=== PATIENT | male | born 1960 | race Caucasian/White ===

== ENCOUNTER 2019-12-19 17:03 | Emergency (ER) | payer OTHER, SELFPAY ==
[2019-12-19 17:20] VITALS: BP 147/96; PULSE 67; RESP 18; TEMP 36.4; O2SAT 98
[2019-12-19 18:07] LABS: Add Manual Diff / Slide Review NO; Basophils Absolute Auto 0 /uL (0-100); Basophils Percent Auto 0.6 % (0-2); Eosinophils Absolute Auto 0 /uL (0-450); Eosinophils Percent Auto 0.5 % (2-4); Hemoglobin 15.5 g/dL (13.5-17.5); Lymphocytes Absolute Auto 1600 /uL (1100-4500); Lymphocytes Percent Auto 30.2 % (25-40); Mean Corpuscular HGB Conc 34.5 % (30-36); Mean Corpuscular Hemoglobin 32.6 PG (26-34); Mean Corpuscular Volume 94.7 fL (80-100); Monocytes Absolute Auto 600 /uL (0-900); Monocytes Percent Auto 11.6 % (3-14); Neutrophils Absolute Auto 3000 /uL (1500-7000); Neutrophils Percent Auto 57.1 % (50-75); Platelet Count 196 X10^3/uL (150-400); Red Blood Cell Count 4.75 X10^6/uL (4.5-5.9); Red Cell Distribution Width 12.4 % (11.6-14.8); White Blood Cell Count 5.3 X10^3/uL (4.5-11.0)
[2019-12-19 18:11] LABS: INR 1.1 (0.9-1.3); Prothrombin Time 12.5 SECONDS (10.1-12.7)
[2019-12-19 18:14] LABS: PTT Partial Thromboplastin Tim 35 SECONDS (26.4-36.2)
[2019-12-19 18:17] LABS: Alanine Aminotransferase 25 IU/L (<50); Albumin 4.1 g/dL (3.5-5.0); Albumin Globulin Ratio 1.5 (1.0-2.8); Alkaline Phosphatase 66 U/L (38-126); Aspartate Aminotransferase 25 IU/L (17-59); BUN Creatinine Ratio 19.2 (6-22); Bilirubin Total 0.7 mg/dL (0.2-1.3); Blood Urea Nitrogen 23 mg/dL (9-20); Calcium 9.1 mg/dL (8.4-10.2); Carbon Dioxide 29 mmol/L (22-32); Chloride 106 mmol/L (98-107); Estimated Glomerular Filt Rate > 60.0 mL/min (>60); Globulin 2.8 g/dL (1.7-4.1); Glucose 120 mg/dL (70-100); HEMOLYSIS < 15 (0-50); Lipase 48 U/L (23-300); Potassium 4.7 mmol/L (3.4-5.1); Sodium 139 mmol/L (137-145); Total Protein 6.9 g/dL (6.3-8.2)
--- NOTE | 2019-12-19 18:28 | ED_ITS ---
HPI - Abdominal Pain General Chief Complaint: Abdominal Pain Stated Complaint: left side abdominal pain since last Sunday Time Seen by Provider: 12/19/19 17:17 Source: patient Mode of arrival: Ambulatory Limitations: no limitations History of Present Illness HPI narrative: 59M former smoker with morbid obesity, HTN, and hypothyroid presents with the chief complaint of some L flank pain over the past week or so. He states it is worse when he moves and improves with rest. He denies any injury or history of the same. He denies any runny nose, sore throat or cough. Patient denies any fever, chills nor nausea or vomiting. He does state that he has had constipation for the past week or so. He denies any dysuria, frequency, urgency or hematuria. MD complaint: flank pain Onset (ago): day(s) Pain Consistency: constant Location: L flank Severity: moderate Quality: cramping and aching Radiation: LLQ Relieving factors: rest Exacerbating factors: movement Related Data Home Medications Medication Instructions Recorded Confirmed apixaban [Eliquis] 5 mg PO BID 12/19/19 12/19/19 atorvastatin 40 mg PO DAILY 12/19/19 12/19/19 carvedilol 6.25 mg PO BID 12/19/19 12/19/19 cholecalciferol (vitamin D3) 5,000 unit PO DAILY 12/19/19 12/19/19 [Vitamin D3] esomeprazole magnesium 40 mg PO BID 12/19/19 12/19/19 fluticasone propionate 1 spray INTRANASAL DIRECTED 12/19/19 12/19/19 hydroxyzine HCl 25 mg PO DAILY 12/19/19 12/19/19 levothyroxine [Synthroid] 175 mcg PO DAILY 12/19/19 12/19/19 loratadine 10 mg PO DAILY 12/19/19 12/19/19 losartan 50 mg PO DAILY 12/19/19 12/19/19 meloxicam 15 mg PO DAILY 12/19/19 12/19/19 olopatadine [Patanol] 1 drp OPHTHALMIC (EYE) DIRECTED 12/19/19 12/19/19 rizatriptan 10 mg PO PRN PRN 12/19/19 12/19/19 venlafaxine 75 mg PO DAILY 12/19/19 venlafaxine 300 mg PO DAILYCC 12/19/19 12/19/19 zolpidem 5 mg PO BEDTIME 12/19/19 12/19/19 Previous Rx's Medication Instructions Recorded hydrocodone-acetaminophen 1 tab PO Q4-6H PRN #10 tab 12/19/19 ondansetron 4 mg PO TID-QID PRN #10 tab 12/19/19 Allergies Allergy/AdvReac Type Severity Reaction Status Date / Time No Known Drug Allergies Allergy Verified 12/19/19 18:13 Review of Systems Constitutional Constitutional: Denies chills, Denies fatigue, Denies fever(s), Denies frequent falls, Denies lethargy and Denies weakness Eyes Eyes: Denies change in vision, Denies eye discharge, Denies irritation and Denies loss of vision ENT Ears, Nose, Mouth, and Throat: Denies change in voice, Denies dizziness, Denies neck pain, Denies sore throat and Denies throat swelling Cardiovascular Cardiovascular: Denies chest pain, Denies irregular heart rhythm, Denies lightheadedness, Denies palpitations, Denies dyspnea, Denies dyspnea on exertion and Denies orthopnea Respiratory Respiratory: Denies cough, Denies dyspnea, Denies dyspnea on exertion and Denies wheezing Gastrointestinal Gastrointestinal: Denies abdominal pain, Denies change in bowel habits, Denies diarrhea, Denies nausea and Denies vomiting Genitourinary Genitourinary: Denies hematuria, Reports flank pain, Denies urinary incontinence and Denies urinary urgency Musculoskeletal Musculoskeletal: Denies back pain, Denies muscle weakness, Denies neck pain, Denies numbness and Denies tingling Integumentary/Breasts Skin/Breast: Denies pruritus, Denies erythema, Denies rash and Denies wounds Neurologic Neurologic: Denies behavioral changes, Denies confusion, Denies dizziness, Denies frequent falls, Denies loss of vision, Denies numbness, Denies tingling and Denies weakness Psychiatric Psychiatric: Denies anxiety, Denies behavioral changes, Denies confusion, Denies depression, Denies homicidal ideation and Denies suicidal ideation Endocrine Endocrine: Denies fatigue, Denies flushing and Denies palpitations Hematologic/Lymphatic Hematologic/Lymphatic: Denies easy bruising Allergic/Immunologic Allergic/Immunologic: Denies urticaria, Denies throat swelling and Denies wheezing Patient History Medical History Pulmonary emboli (Acute ~08/05/19) Stroke (Acute ~08/05/18) Social History Smoking Status: Former smoker Smoking Status: Former smoker tobacco type: cigarettes alcohol intake frequency: a few times a week Substance Use Type: does not use Exam Narrative Exam Narrative: GENERAL: [59] year old patient appears stated age. Well- nourished, well-developed patient, in mild distress. HEAD: Atraumatic. Normocephalic. EYES: Pupils equal round and reactive. Extraocular motions intact. No scleral icterus. No injection or drainage. ENT: Nose without bleeding, purulent drainage. Throat without erythema, tonsillar hypertrophy or exudate. Airway patent. NECK: Trachea midline. Non tender CARDIOVASCULAR: Regular rate and rhythm without murmurs, gallops, or rubs. RESPIRATORY: Clear to auscultation. Breath sounds equal bilaterally. No wheezes, rales, or rhonchi. GASTROINTESTINAL: Abdomen soft, left sided abdominal pain, nondistended. EXTREMITIES: No edema or joint tenderness. BACK: Mild left flank pain NEURO: AOx3. SKIN: No rash or erythema of visible areas Initial Vital Signs Initial Vital Signs: Vital Signs Temperature 97.5 F L 12/19/19 17:20 Pulse Rate 67 12/19/19 17:20 Respiratory Rate 18 12/19/19 17:20 Blood Pressure 147/96 H 12/19/19 17:20 Pulse Oximetry 98 12/19/19 17:20 Course Orders Ordered: ED Orders 12/19/19 17:55 Complete Blood Count AUTO DIFF Stat Comprehensive Metabolic Panel Stat Lipase Stat Partial Thromboplastin Time Stat Prothrombin Time INR Stat 12/19/19 18:37 CT abdomen pelvis w con Stat Discontinued Medications Hydrocodone Bitart/Acetaminophen (Vicodin 5/325 Prepack) 1 bottle MISC SEEINSTR ONE Stop: 12/19/19 20:12 Last Admin: 12/19/19 20:25 Dose: 1 bottle Documented by: BEVERLEY Hydromorphone HCl (Dilaudid) 0.5 mg IV NOW ONE Stop: 12/19/19 19:58 Last Admin: 12/19/19 20:13 Dose: 0.5 mg Documented by: BEVERLEY Sodium Chloride (Normal Saline 0.9%) 1,000 mls @ 1,000 mls/hr IV BOLUS ONE Stop: 12/19/19 19:36 Last Infusion: 12/19/19 20:26 Dose: 0 mls/hr Documented by: Admin: 12/19/19 18:42 Dose: 1,000 mls/hr Documented by: MAURICIO Ketorolac Tromethamine (Toradol) 15 mg IV NOW ONE Stop: 12/19/19 18:38 Last Admin: 12/19/19 18:42 Dose: 15 mg Documented by: MAURICIO Ondansetron HCl (Zofran Odt Prepack) 1 bottle MISC SEEINSTR ONE Stop: 12/19/19 20:12 Last Admin: 12/19/19 20:25 Dose: 1 bottle Documented by: BEVERLEY Vital Signs Vital signs: Vital Signs - 8 hr 12/19/19 17:20 12/19/19 19:33 12/19/19 20:10 Temperature 97.5 F L Pulse Rate 67 63 Respiratory Rate 18 Blood Pressure 147/96 H Blood Pressure [Left Arm] 142/86 H Pulse Oximetry 98 100 100 MDM - Abdominal Pain Lab Data Result diagrams: 12/19/19 17:55 12/19/19 17:55 Labs: Lab Results 12/19/19 12/19/19 12/19/19 Range/Units 17:55 17:55 17:55 WBC 5.3 (4.5-11.0) X10^3/uL RBC 4.75 (4.5-5.9) X10^6/uL Hgb 15.5 (13.5-17.5) g/dL Hct 45.0 (41-53) % MCV 94.7 (80-100) fL MCH 32.6 (26-34) PG MCHC 34.5 (30-36) % RDW 12.4 (11.6-14.8) % Plt Count 196 (150-400) X10^3/uL Neut % (Auto) 57.1 (50-75) % Lymph % (Auto) 30.2 (25-40) % Tift % (Auto) 11.6 (3-14) % Eos % (Auto) 0.5 L (2-4) % Baso % (Auto) 0.6 (0-2) % Neut # (Auto) 3000 (7584-4741) /uL Lymph # (Auto) 1600 (6888-1445) /uL Tift # (Auto) 600 (0-900) /uL Eos # (Auto) 0 (0-450) /uL Baso # (Auto) 0 (0-100) /uL PT 12.5 (10.1-12.7) SECONDS INR 1.1 (0.9-1.3) APTT 35 (26.4-36.2) SECONDS Sodium 139 (137-145) mmol/L Potassium 4.7 (3.4-5.1) mmol/L Chloride 106 (98-107) mmol/L Carbon Dioxide 29 (22-32) mmol/L BUN 23 H (9-20) mg/dL Creatinine 1.20 (0.66-1.25) mg/dL Estimated GFR > 60.0 (>60) mL/min BUN/Creatinine Ratio 19.2 (6-22) Glucose 120 H (70-100) mg/dL Calcium 9.1 (8.4-10.2) mg/dL Total Bilirubin 0.7 (0.2-1.3) mg/dL AST 25 (17-59) IU/L ALT 25 (<50) IU/L Alkaline Phosphatase 66 (38-126) U/L Total Protein 6.9 (6.3-8.2) g/dL Albumin 4.1 (3.5-5.0) g/dL Globulin 2.8 (1.7-4.1) g/dL Albumin/Globulin Ratio 1.5 (1.0-2.8) Lipase 48 (23-300) U/L Point of care testing: Urine Dip Bedside Urine Glucose Negative Bedside Urine Bilirubin - Negative Bedside Urine Ketone - Negative Urine Specific Percival 1.015 Bedside Urine Occult Blood - Negative Bedside Urine pH 6.0 Bedside Urine Protein - Negative Bedside Urine Urobilinogen - Negative Bedside Urine Nitrite - Negative Bedside Urine Leukocytes - Negative Esterase Imaging Data CT scan - abdomen/pelvis: Radiologist's Impression: [address] [address] [address] Scan Report Signed Patient: Juwan Fuller#: [id number] : 2Acct:[id number] Age/Sex: 59 / MDate of Service: 12/19/19 Loc: ED Accession Number: [id number] Procedure: CT abdomen pelvis w con Ordering Provider: Trevon Finch D.O. PROCEDURE: CT ABDOMEN PELVIS W CON INDICATIONS: severe L flank and abdomen pain TECHNIQUE: After the administration of intravenous contrast, 5 mm thick sections acquired from the diaphragm to the symphysis. 5 mm coronal and sagittal reformats were acquired. For radiation dose reduction, the following was used: automated exposure control, adjustment of mA and/or kV according to patient size. COMPARISON: None. FINDINGS: Image quality: Excellent. ABDOMEN: Lung bases: Lung bases are clear. Heart size is normal. Solid organs: There is a 1.8 x 6.8 x 2.8 cm focus of ill-defined enhancement in the posterior right lobe of liver. There is a small 1.0 cm hypoattenuating lesion situated centrally within the area of enhancement. Gallbladder is normal. Biliary system is non dilated. Pancreas enhances normally. Spleen is normal in size and enhancement. No adrenal nodules. Kidneys demonstrate normal size and enhancement, without hydronephrosis. Small bilateral renal cysts. Peritoneum and bowel: Small hiatal hernia. Bowel loops demonstrate normal wall thickness and caliber. Few scattered diverticuli noted in the colon without evidence of diverticulitis. No free fluid or air. The appendix is surgically absent. Nodes and vessels: No retroperitoneal or mesenteric adenopathy by size criteria. Aorta and inferior vena cava are normal in size. Miscellaneous: No ventral hernias. PELVIS: Genitourinary: Bladder wall thickness is normal. Miscellaneous: No inguinal hernias or adenopathy. Bones: No suspicious bony lesions. No vertebral body compression fractures. IMPRESSION: 1. Focus of ill-defined postcontrast enhancement with a central cyst or necrosis involving the right lobe of the liver. Finding may represent transient hepatic atypical hemangioma, however other etiologies including a malignancy and infection cannot be differentiated. Recommend correlation with clinical and laboratory data. Recommend CT scan hepatic protocol utilizing multiphase technique for definitive characterization. 2. Small hiatal hernia. 3. Status post appendectomy. 4. Clinical diverticulosis without evidence of diverticulitis. Findings and recommendations discussed with Dr. Finch on 12/19/2019 at 1925 hrs. Dictated by: Rut Izaguirre MD, PhD on 12/19/2019 at 19:17 Approved by: Rut Izaguirre MD, PhD on 12/19/2019 at 19:27 [facility] Narrative Medical decision making narrative: Multiple etiologies for patient's symptoms co nsidered including: [Kidney stone versus pyelonephritis versus bowel obstruction versus other. Patient states he has had a cyst in his liver for many years and that he has no right-sided pain] Patient's symptoms improved or duration of stay with above-stated therapies. Findings and discharge diagnosis discussed with patient/family followed by verbalization of understanding Return precautions discussed with patient/family whom verbalize understanding. Discharge Plan Departure Patient Disposition: Home Clinical Impression: Abdominal pain Qualifiers: Abdominal location: left upper quadrant Qualified Code(s): R10.12 - Left upper quadrant pain Discharge Date/Time: 12/19/19 20:43 Instructions: DI for Abdominal Pain-Adult Activity Restrictions/Additional Instructions: *You have been diagnosed with [acute left-sided abdominal pain, no significant findings on CT scan such as bowel infection, obstruction or kidney stone.] *What to do: *Take medications as directed *Follow up with your primary care provider in 2-3 days, call for an appointment. Let them know you were seen in the Emergency Department and that we ask that you be seen in follow up. Your CT did find what is likely an incidental finding of an atypical appearing spot your liver which radiology recommended is evaluated by a specific type of CT scan as an outpatient which your primary care provider can healthy with *Return to ER if you should have any new, worsening or concerning symptoms, such as [increasing pain, fever, shaking chills, persistent vomiting or other bothersome symptoms] Prescriptions: New hydrocodone-acetaminophen 5-325 mg tablet 1 tab PO Q4-6H PRN (Reason: pain) Qty: 10 RF: 0 ondansetron 4 mg tablet,disintegrating 4 mg PO TID-QID PRN (Reason: nausea and vomiting) Qty: 10 RF: 0 No Action atorvastatin 40 mg tablet 40 mg PO DAILY RF: 0 carvedilol 6.25 mg tablet 6.25 mg PO BID RF: 0 esomeprazole magnesium 40 mg capsule,delayed release(DR/EC) 40 mg PO BID RF: 0 fluticasone propionate 50 mcg/actuation spray,suspension 1 spray INTRANASAL DIRECTED RF: 0 Eliquis 5 mg tablet 5 mg PO BID RF: 0 losartan 50 mg tablet 50 mg PO DAILY RF: 0 levothyroxine [Synthroid] 175 mcg tablet 175 mcg PO DAILY RF: 0 venlafaxine 75 mg capsule,extended release 24hr 75 mg PO DAILY RF: 0 meloxicam 15 mg tablet 15 mg PO DAILY RF: 0 venlafaxine 150 mg capsule,extended release 24hr 300 mg PO DAILYCC RF: 0 rizatriptan 10 mg tablet,disintegrating 10 mg PO PRN PRN (Reason: Migraine Headache) RF: 0 olopatadine [Patanol] 0.1 % drops 1 drp ophthalmic (eye) DIRECTED RF: 0 hydroxyzine HCl 25 mg tablet 25 mg PO DAILY RF: 0 zolpidem 5 mg tablet 5 mg PO BEDTIME RF: 0 loratadine 10 mg tablet 10 mg PO DAILY RF: 0 cholecalciferol (vitamin D3) [Vitamin D3] 125 mcg (5,000 unit) Tablet 5,000 unit PO DAILY RF: 0 Referrals: [facility] [Outside]
--- NOTE | 2019-12-19 18:37 | DI.CT.S_ITS ---
PROCEDURE: CT ABDOMEN PELVIS W CON INDICATIONS: severe L flank and abdomen pain TECHNIQUE: After the administration of intravenous contrast, 5 mm thick sections acquired from the diaphragm to the symphysis. 5 mm coronal and sagittal reformats were acquired. For radiation dose reduction, the following was used: automated exposure control, adjustment of mA and/or kV according to patient size. COMPARISON: None. FINDINGS: Image quality: Excellent. ABDOMEN: Lung bases: Lung bases are clear. Heart size is normal. Solid organs: There is a 1.8 x 6.8 x 2.8 cm focus of ill-defined enhancement in the posterior right lobe of liver. There is a small 1.0 cm hypoattenuating lesion situated centrally within the area of enhancement. Gallbladder is normal. Biliary system is non dilated. Pancreas enhances normally. Spleen is normal in size and enhancement. No adrenal nodules. Kidneys demonstrate normal size and enhancement, without hydronephrosis. Small bilateral renal cysts. Peritoneum and bowel: Small hiatal hernia. Bowel loops demonstrate normal wall thickness and caliber. Few scattered diverticuli noted in the colon without evidence of diverticulitis. No free fluid or air. The appendix is surgically absent. Nodes and vessels: No retroperitoneal or mesenteric adenopathy by size criteria. Aorta and inferior vena cava are normal in size. Miscellaneous: No ventral hernias. PELVIS: Genitourinary: Bladder wall thickness is normal. Miscellaneous: No inguinal hernias or adenopathy. Bones: No suspicious bony lesions. No vertebral body compression fractures. IMPRESSION: 1. Focus of ill-defined postcontrast enhancement with a central cyst or necrosis involving the right lobe of the liver. Finding may represent transient hepatic atypical hemangioma, however other etiologies including a malignancy and infection cannot be differentiated. Recommend correlation with clinical and laboratory data. Recommend CT scan hepatic protocol utilizing multiphase technique for definitive characterization. 2. Small hiatal hernia. 3. Status post appendectomy. 4. Clinical diverticulosis without evidence of diverticulitis. Findings and recommendations discussed with Dr. Finch on 12/19/2019 at 1925 hrs. Dictated by: Rut Izaguirre MD, PhD on 12/19/2019 at 19:17 Approved by: Rut Izaguirre MD, PhD on 12/19/2019 at 19:27
[2019-12-19] MEDS: KETOROLAC 60 MG/2 ML VIAL 15 MG IV (18:42)
[2019-12-19] MEDS: SODIUM CHLORIDE 0.9% 1,000 ML 1000 ML IV (18:42)
[2019-12-19 19:33] VITALS: BP 142/86; PULSE 63; O2SAT 100
[2019-12-19 20:10] VITALS: O2SAT 100
[2019-12-19] MEDS: HYDROMORPHONE 0.5 MG INJ IV (20:13)
[2019-12-19] MEDS: ONDANSETRON 4 MG ODT PREPACK 1 BOTTLE MISC (20:25)
[2019-12-19] MEDS: HYDROCODONE/ACET 5/325 PREPACK 1 BOTTLE MISC (20:25)
== END 2019-12-19 20:43 | disposition home or self-care (01) ==
PROVIDERS: Emergency Provider Emergency Medicine
DX: R10.12 Left upper quadrant pain (principal)
CPT/HCPCS: 36415; 74177; 80053; 81003; 83690; 85025; 85610; 85730; 96361; 96374; 96375; 99284; 99285; J1170; J1885

== ENCOUNTER 2020-01-15 14:15 | Emergency (ER) | payer OTHER, SELFPAY ==
[2020-01-15 14:16] VITALS: BP 156/96; PULSE 63; RESP 18; TEMP 36.9; O2SAT 98
--- NOTE | 2020-01-15 14:20 | DI.RAD.S_ITS ---
PROCEDURE: XR ANKLE LT MIN 3V INDICATIONS: fall TECHNIQUE: 3 views of the ankle were acquired. COMPARISON: None. FINDINGS: Bones: No fractures or dislocations. Ankle mortise is normally aligned. No suspicious bony lesions. Soft tissues: No tibiotalar joint effusion. Achilles tendon appears normal. IMPRESSION: No gross acute left foot fracture or dislocation. Dictated by: João Darby M.D. on 01/15/2020 at 15:37 Approved by: João Darby M.D. on 01/15/2020 at 15:38
--- NOTE | 2020-01-15 14:20 | DI.RAD.S_ITS ---
PROCEDURE: XR FOOT LT MIN 3V INDICATIONS: fall TECHNIQUE: 3 views of the foot were acquired. COMPARISON: None. FINDINGS: Bones: No fractures or dislocations. No suspicious bony lesions. Soft tissues: No tibiotalar joint effusion. Achilles tendon appears normal. IMPRESSION: No acute ankle fracture or dislocation. Dictated by: João Darby M.D. on 01/15/2020 at 15:37 Approved by: João Darby M.D. on 01/15/2020 at 15:37
[2020-01-15 14:30] VITALS: PULSE 72
--- NOTE | 2020-01-15 16:30 | ED.LOWEXIN ---
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 He states he rolled inwards yesterday felt a pop and a crack. He has tried Tylenol he has been able to walk it since the injury. He states he has a previous injury of strain sprains and fractures. He does complain of bruising on the outside of his left ankle. Related Data Home Medications Medication Instructions Recorded Confirmed apixaban [Eliquis] 5 mg PO BID 12/19/19 01/15/20 atorvastatin 40 mg PO DAILY 12/19/19 01/15/20 carvedilol 6.25 mg PO BID 12/19/19 01/15/20 cholecalciferol (vitamin D3) 5,000 unit PO DAILY 12/19/19 01/15/20 [Vitamin D3] esomeprazole magnesium 40 mg PO BID 12/19/19 01/15/20 fluticasone propionate 1 spray INTRANASAL DIRECTED 12/19/19 01/15/20 hydroxyzine HCl 25 mg PO DAILY 12/19/19 01/15/20 levothyroxine [Synthroid] 175 mcg PO DAILY 12/19/19 01/15/20 loratadine 10 mg PO DAILY 12/19/19 01/15/20 losartan 50 mg PO DAILY 12/19/19 01/15/20 meloxicam 15 mg PO DAILY 12/19/19 01/15/20 olopatadine [Patanol] 1 drp OPHTHALMIC (EYE) DIRECTED 12/19/19 01/15/20 rizatriptan 10 mg PO PRN PRN 12/19/19 01/15/20 venlafaxine 75 mg PO DAILY 12/19/19 01/15/20 venlafaxine 300 mg PO DAILYCC 12/19/19 01/15/20 zolpidem 5 mg PO BEDTIME 12/19/19 01/15/20 Previous Rx's Medication Instructions Recorded hydrocodone-acetaminophen 1 tab PO Q4-6H PRN #10 tab 12/19/19 ondansetron 4 mg PO TID-QID PRN #10 tab 12/19/19 Allergies Allergy/AdvReac Type Severity Reaction Status Date / Time No Known Drug Allergies Allergy Verified 12/19/19 18:13 Review of Systems <ERNESTINA Bermudez - Last Filed: 01/15/20 16:45> Review of Systems Narrative: GENERAL: Denies chills, fatigue, malaise, fever, sweats. HEENT: Denies sinus pain, ear pain, sore throat, difficulty swallowing, dizziness. RESPIRATORY: Denies dyspnea, cough, wheezing, hemoptysis, sputum. CARDIOVASCULAR: Denies chest pain, palpitations, orthopnea, edema, GASTROINTESTINAL: Denies nausea, vomiting, abdominal pain, diarrhea, constipation, melena. : Denies dysuria, frequency, incontinence, hematuria, urinary retention. MUSCULOSKELETAL: denies weakness, joint pain, or bony pain SKIN: Denies rash, skin lesions, or other NEUROLOGIC: Denies weakness, headache, numbness, change in speech, confusion, seizures, incoordination. PSYCHIATRIC: No concerning psychosocial issues. 12 point review of systems is negative except for those stated above Patient History <ERNESTINA Bermudez - Last Filed: 01/15/20 16:45> Medical History Pulmonary emboli (Acute ~08/05/19) Stroke (Acute ~08/05/18) Social History Smoking Status: Former smoker Smoking Status: Former smoker tobacco type: cigarettes alcohol intake frequency: a few times a week Substance Use Type: does not use Exam <ERNESTINA Bermudez - Last Filed: 01/15/20 16:45> Narrative Exam Narrative: GENERAL: This is a well-nourished, well-developed patient, no acute distress HEAD: Atraumatic. Normocephalic. No temporal or scalp tenderness. EYES: Pupils equal round and reactive. Extraocular motions intact. No scleral icterus. No injection or drainage. ENT: Nose without bleeding, purulent drainage or septal hematoma. Throat without erythema, tonsillar hypertrophy or exudate. Uvula midline. Airway patent. NECK: Trachea midline. No JVD or lymphadenopathy. Supple, nontender, no meningeal signs. CARDIOVASCULAR: Regular rate and rhythm RESPIRATORY: No cough. No increased respiratory effort. No accessory muscle use. EXTREMITIES: General pain to palpation lateral aspect of left ankle. No pain to palpation of left navicular. Positive pedal pulses left foot. Capillary refill less than 2 seconds all toes left foot. Able to flex and extend pronate supinate left foot. BACK: Nontender without deformity or crepitance. No flank tenderness. NEURO: AOx3. SKIN: Diffuse ecchymosis noted on lateral aspect of left ankle. Diffuse ecchymosis noted over left forefoot. No abrasion laceration. Initial Vital Signs Initial Vital Signs: Vital Signs Temperature 98.4 F 01/15/20 14:16 Pulse Rate 63 01/15/20 14:16 Respiratory Rate 18 01/15/20 14:16 Blood Pressure 156/96 H 01/15/20 14:16 Pulse Oximetry 98 01/15/20 14:16 <Man Singh MD - Last Filed: 01/16/20 07:56> Initial Vital Signs Initial Vital Signs: Vital Signs Temperature 98.4 F 01/15/20 14:16 Pulse Rate 63 01/15/20 14:16 Respiratory Rate 18 01/15/20 14:16 Blood Pressure 156/96 H 01/15/20 14:16 Pulse Oximetry 98 01/15/20 14:16 Course <KRYSTA Bermudez-BC - Last Filed: 01/15/20 16:45> Orders Ordered: ED Orders 01/15/20 14:20 XR ankle LT min 3V Stat XR foot LT min 3V Stat Vital Signs Vital signs: Vital Signs - 8 hr 01/15/20 14:16 Temperature 98.4 F Pulse Rate 63 Respiratory Rate 18 Blood Pressure 156/96 H Pulse Oximetry 98 <Man Singh MD - Last Filed: 01/16/20 07:56> Orders Ordered: ED Orders 01/15/20 14:20 XR ankle LT min 3V Stat XR foot LT min 3V Stat Vital Signs Vital signs: Vital Signs - 8 hr 01/15/20 14:16 Temperature 98.4 F Pulse Rate 63 Respiratory Rate 18 Blood Pressure 156/96 H Pulse Oximetry 98 MDM - Extremity Injury (Lower) <Karen Marcos, [employer] - Last Filed: 01/15/20 16:45> Imaging Data Extremity x-ray #1: Radiologist's Impression: [address] [place] [id number] XRay Report Signed Patient: Nadeem Fuller JR [facility]#: [id number] : [id number] Age/Sex: 59 / MDate of Service: 01/15/20 Loc: ED Accession Number: [id number] Procedure: XR foot LT min 3V Ordering Provider: Man Singh MD PROCEDURE: XR FOOT LT MIN 3V INDICATIONS: fall TECHNIQUE: 3 views of the foot were acquired. COMPARISON: None. FINDINGS: Bones: No fractures or dislocations. No suspicious bony lesions. Soft tissues: No tibiotalar joint effusion. Achilles tendon appears normal. IMPRESSION: No acute ankle fracture or dislocation. Dictated by: João Darby M.D. on 01/15/2020 at 15:37 Approved by: João Darby M.D. on 01/15/2020 at 15:37 Extremity x-ray #2: Radiologist's Impression: [address] [place] [id number] XRay Report Signed Patient: Nadeem Fuller JR [facility]#: [id number] : [id number] Age/Sex: 59 / MDate of Service: 01/15/20 Loc: ED Accession Number: [id number] Procedure: XR ankle LT min 3V Ordering Provider: Man Singh MD PROCEDURE: XR ANKLE LT MIN 3V INDICATIONS: fall TECHNIQUE: 3 views of the ankle were acquired. COMPARISON: None. FINDINGS: Bones: No fractures or dislocations. Ankle mortise is normally aligned. No suspicious bony lesions. Soft tissues: No tibiotalar joint effusion. Achilles tendon appears normal. IMPRESSION: No gross acute left foot fracture or dislocation. Dictated by: João Darby M.D. on 01/15/2020 at 15:37 Approved by: João Darby M.D. on 01/15/2020 at 15:38 [facility] Narrative Medical decision making narrative: The patient is a 59-year-old male who presents with a chief complaint of left-sided ankle and foot pain. X-rays are negative for any acute fracture. Discussed the possibility of an occult fracture soft tissue injury. Patient is able to ambulate does not want a brace or anything like that. I encouraged PCP follow-up the next few days. Discussed coming back to the emergency department for any acute concerns. Patient has no questions or concerns upon discharge and states understanding of return precautions as well as follow-up care. Discharge Plan Departure Patient Disposition: Home Clinical Impression: Acute left ankle pain, Acute pain of left foot Discharge Date/Time: 01/15/20 16:50 Instructions: How To Perform RICE (Rest, Ice, Compress, Elevate), DI for Ankle Pain, DI for Foot Pain Activity Restrictions/Additional Instructions: Thank you for trusting us with your care today As I discussed, your x-ray shows no acute fracture. This does not rule out a soft tissue injury such as a ligament or tendon injury. It is important that you follow up with primary care provider, especially if worsening or no improvement. There can be fractures that did not show up on initial x-ray. Please use rest ice compression elevation please use [id number] medications as needed and able. Please follow-up with primary care provider next few days. Please come back to the emergency department for any acute concerns. Prescriptions: No Action atorvastatin 40 mg tablet 40 mg PO DAILY RF: 0 carvedilol 6.25 mg tablet 6.25 mg PO BID RF: 0 esomeprazole magnesium 40 mg capsule,delayed release(DR/EC) 40 mg PO BID RF: 0 fluticasone propionate 50 mcg/actuation spray,suspension 1 spray INTRANASAL DIRECTED RF: 0 Eliquis 5 mg tablet 5 mg PO BID RF: 0 losartan 50 mg tablet 50 mg PO DAILY RF: 0 levothyroxine [Synthroid] 175 mcg tablet 175 mcg PO DAILY RF: 0 venlafaxine 75 mg capsule,extended release 24hr 75 mg PO DAILY RF: 0 meloxicam 15 mg tablet 15 mg PO DAILY RF: 0 venlafaxine 150 mg capsule,extended release 24hr 300 mg PO DAILYCC RF: 0 rizatriptan 10 mg tablet,disintegrating 10 mg PO PRN PRN (Reason: Migraine Headache) RF: 0 olopatadine [Patanol] 0.1 % drops 1 drp ophthalmic (eye) DIRECTED RF: 0 hydroxyzine HCl 25 mg tablet 25 mg PO DAILY RF: 0 zolpidem 5 mg tablet 5 mg PO BEDTIME RF: 0 loratadine 10 mg tablet 10 mg PO DAILY RF: 0 cholecalciferol (vitamin D3) [Vitamin D3] 125 mcg (5,000 unit) Tablet 5,000 unit PO DAILY RF: 0 hydrocodone-acetaminophen 5-325 mg tablet 1 tab PO Q4-6H PRN (Reason: pain) Qty: 10 RF: 0 ondansetron 4 mg tablet,disintegrating 4 mg PO TID-QID PRN (Reason: nausea and vomiting) Qty: 10 RF: 0 Referrals: Latanya James DO [Non-Staff] -
== END 2020-01-15 16:50 | disposition home or self-care (01) ==
PROVIDERS: Emergency Provider Nurse Practitioner Family
DX: M25.572 Pain in left ankle and joints of left foot (principal); W19.XXXA Unspecified fall, initial encounter
CPT/HCPCS: 73610; 73630; 99283

== ENCOUNTER 2020-06-14 23:17 | Emergency (ER) | payer OTHER, SELFPAY ==
[2020-06-14 23:17] VITALS: BP 136/81; PULSE 82; RESP 16; TEMP 36.6; O2SAT 98; BMI 32.8
--- NOTE | 2020-06-14 23:47 | DI.CT.S_ITS ---
PROCEDURE: CT ABDOMEN PELVIS W CON INDICATIONS: PAIN TECHNIQUE: After the administration of intravenous contrast, 5 mm thick sections acquired from the diaphragm to the symphysis. 5 mm coronal and sagittal reformats were acquired. For radiation dose reduction, the following was used: automated exposure control, adjustment of mA and/or kV according to patient size. COMPARISON: [facility], CT, CT ABDOMEN PELVIS W CON, 12/19/2019, 19:00. FINDINGS: Image quality: Excellent. ABDOMEN: Lung bases: Lung bases are clear. Heart size is normal. There is a small hiatal hernia. Solid organs: Within the right hepatic lobe, a small oval hypodensity measuring up to 0.8 cm appears unchanged in size. This demonstrates internal fat density. A small region of associated vascular shunting is again noted. The gallbladder appears within normal limits without calcified gallstones. Biliary system is non-dilated. Pancreas enhances normally. No peripancreatic fat stranding or fluid collections. No pancreatic duct dilatation. The spleen is normal in size. No adrenal nodules. Kidneys demonstrate no hydronephrosis. Peritoneum and bowel: Bowel loops demonstrate normal wall thickness and caliber. There are postsurgical changes along the cecum likely from prior appendectomy. There is colonic diverticulosis without acute diverticulitis. No free fluid or air. Nodes and vessels: No retroperitoneal or mesenteric adenopathy by size criteria. There is mild hazy fat stranding in the mesentery associated with a few scattered subcentimeter mesenteric lymph nodes. Aorta and inferior vena cava are normal in size. Miscellaneous: No ventral hernias. PELVIS: Genitourinary: Bladder wall thickness is normal. Miscellaneous: No inguinal hernias or adenopathy. Bones: No suspicious bony lesions. No vertebral body compression fractures. IMPRESSION: 1. Mild hazy fat stranding in the mesentery with a few scattered subcentimeter mesenteric lymph nodes. 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 2. Small fat density lesion redemonstrated in the right hepatic lobe with adjacent vascular shunting. Findings are stable in size compared to the recent prior study and likely represent a benign process such as an angiomyolipoma or lipoma but a malignant process cannot be fully excluded. Recommend follow-up CT in 12 months to demonstrate stability if clinically indicated. Dictated by: Tomas Sandoval M.D. on 06/15/2020 at 9:31 Approved by: Tomas Sandoval M.D. on 06/15/2020 at 9:55
[2020-06-14 23:57] LABS: Add Manual Diff / Slide Review NO; Basophils Absolute Auto 0 /uL (0-100); Basophils Percent Auto 0.2 % (0-2); Eosinophils Absolute Auto 0 /uL (0-450); Eosinophils Percent Auto 0.5 % (2-4); Hematocrit 38.7 % (41-53); Hemoglobin 13.2 g/dL (13.5-17.5); Lymphocytes Absolute Auto 1700 /uL (1100-4500); Lymphocytes Percent Auto 23.4 % (25-40); Mean Corpuscular HGB Conc 34.2 % (30-36); Mean Corpuscular Hemoglobin 32.5 PG (26-34); Mean Corpuscular Volume 95.1 fL (80-100); Monocytes Absolute Auto 800 /uL (0-900); Monocytes Percent Auto 11.9 % (3-14); Neutrophils Absolute Auto 4500 /uL (1500-7000); Platelet Count 219 X10^3/uL (150-400); Red Blood Cell Count 4.07 X10^6/uL (4.5-5.9); Red Cell Distribution Width 13.3 % (11.6-14.8); White Blood Cell Count 7.1 X10^3/uL (4.5-11.0)
[2020-06-14] MEDS: HYDROMORPHONE 0.5 MG INJ IV (23:59)
[2020-06-15 00:22] LABS: INR 0.9 (0.9-1.3); Prothrombin Time 10.3 SECONDS (10.1-12.7)
[2020-06-15 00:25] LABS: Blood Urea Nitrogen 27 mg/dL (9-20); Calcium 8.3 mg/dL (8.4-10.2); Carbon Dioxide 21 mmol/L (22-32); Chloride 113 mmol/L (98-107); Estimated Glomerular Filt Rate > 60.0 mL/min (>60); Glucose 48 mg/dL (70-100); HEMOLYSIS 19 (0-50); Potassium 4.5 mmol/L (3.4-5.1); Sodium 140 mmol/L (137-145)
[2020-06-15] MEDS: HYDROCODONE/ACET 5/325 PREPACK 1 BOTTLE MISC (01:19)
[2020-06-15 01:24] VITALS: BP 137/80; PULSE 83; RESP 16; O2SAT 98
--- NOTE | 2020-06-15 04:38 | ED.BACK ---
HPI - Back Pain/Injury General Chief Complaint: Back Pain/Injury Stated Complaint: right leg lower back hip abdomen Time Seen by Provider: 06/14/20 23:23 Source: patient and family Mode of arrival: Ambulatory Limitations: no limitations History of Present Illness HPI Narrative: 60M former smoker with history of hypertension, hyperlipidemia, GERD, and on eliquis presents with the chief complaint of back pain and bruising to his abdomen after a traumatic injury yesterday. He was working with a log splitter on uneven ground when it tipped over on him and landed on his abdomen. He now has low back pain across his low back. He also complains of some purplish bruising across his left anterior abdomen, but denies any true, deep abdomen pain. He has full recall and denies any head or neck injury. He's had no trouble with control of bowel or bladder. He denies dysuria, frequency, or urgency. He denies dizziness, weakness, or lightheadedness. He is otherwise well and free of complaint. He is activated as a modified trauma given the high risk of internal bleeding. MD Complaint: back pain, back injury and fall Onset (ago): day(s) Duration: constant Similar Symptoms Previously: Yes Location: lumbar spine Severity: mild Quality: aching Relieving factors: immobilization Exacerbating factors: movement Associated symptoms: denies other symptoms Related Data Home Medications Medication Instructions Recorded Confirmed apixaban [Eliquis] 5 mg PO BID 12/19/19 01/15/20 atorvastatin 40 mg PO DAILY 12/19/19 01/15/20 carvedilol 6.25 mg PO BID 12/19/19 01/15/20 cholecalciferol (vitamin D3) 5,000 unit PO DAILY 12/19/19 01/15/20 [Vitamin D3] esomeprazole magnesium 40 mg PO BID 12/19/19 01/15/20 fluticasone propionate 1 spray INTRANASAL DIRECTED 12/19/19 01/15/20 hydroxyzine HCl 25 mg PO DAILY 12/19/19 01/15/20 levothyroxine [Synthroid] 175 mcg PO DAILY 12/19/19 01/15/20 loratadine 10 mg PO DAILY 12/19/19 01/15/20 losartan 50 mg PO DAILY 12/19/19 01/15/20 meloxicam 15 mg PO DAILY 12/19/19 01/15/20 olopatadine [Patanol] 1 drp OPHTHALMIC (EYE) DIRECTED 12/19/19 01/15/20 rizatriptan 10 mg PO PRN PRN 12/19/19 01/15/20 venlafaxine 75 mg PO DAILY 12/19/19 01/15/20 venlafaxine 300 mg PO DAILYCC 12/19/19 01/15/20 zolpidem 5 mg PO BEDTIME 12/19/19 01/15/20 Previous Rx's Medication Instructions Recorded hydrocodone-acetaminophen 1 tab PO Q4-6H PRN #10 tab 12/19/19 ondansetron 4 mg PO TID-QID PRN #10 tab 12/19/19 Allergies Allergy/AdvReac Type Severity Reaction Status Date / Time No Known Drug Allergies Allergy Verified 12/19/19 18:13 Review of Systems Constitutional Constitutional: Denies chills, Denies fatigue, Denies fever(s), Denies frequent falls, Denies lethargy and Denies weakness Eyes Eyes: Denies change in vision, Denies eye discharge, Denies irritation and Denies loss of vision ENT Ears, Nose, Mouth, and Throat: Denies change in voice, Denies dizziness, Denies neck pain, Denies sore throat and Denies throat swelling Cardiovascular Cardiovascular: Denies chest pain, Denies irregular heart rhythm, Denies lightheadedness, Denies palpitations, Denies dyspnea, Denies dyspnea on exertion and Denies orthopnea Respiratory Respiratory: Denies cough, Denies dyspnea, Denies dyspnea on exertion and Denies wheezing Gastrointestinal Gastrointestinal: Denies abdominal pain, Denies change in bowel habits, Denies diarrhea, Denies nausea and Denies vomiting Musculoskeletal Musculoskeletal: Reports back pain, Denies neck pain and Denies numbness Integumentary/Breasts Skin/Breast: Denies pruritus, Denies erythema, Denies rash and Denies wounds Neurologic Neurologic: Denies behavioral changes, Denies confusion, Denies dizziness, Denies frequent falls, Denies loss of vision, Denies numbness and Denies weakness Psychiatric Psychiatric: Denies anxiety, Denies behavioral changes, Denies confusion, Denies depression, Denies homicidal ideation and Denies suicidal ideation Endocrine Endocrine: Denies fatigue, Denies flushing and Denies palpitations Hematologic/Lymphatic Hematologic/Lymphatic: Denies easy bruising Allergic/Immunologic Allergic/Immunologic: Denies urticaria, Denies throat swelling and Denies wheezing Patient History Medical History Pulmonary emboli (Acute ~08/05/19) Stroke (Acute ~08/05/18) Social History Smoking Status: Former smoker Smoking Status: Former smoker tobacco type: cigarettes alcohol intake frequency: 3 or more drinks per day Substance Use Type: does not use Exam Narrative Exam Narrative: GENERAL: [60] year old patient appears stated age. Well-nourished, well-developed patient, in mild distress. GCS 15 HEAD: Atraumatic. Normocephalic. EYES: Pupils equal round and reactive. Extraocular motions intact. No scleral icterus. No injection or drainage. ENT: Nose without bleeding, purulent drainage. Throat without erythema, tonsillar hypertrophy or exudate. Airway patent. NECK: Trachea midline. Non tender CARDIOVASCULAR: Regular rate and rhythm without murmurs, gallops, or rubs. RESPIRATORY: Clear to auscultation. Breath sounds equal bilaterally. No wheezes, rales, or rhonchi. GASTROINTESTINAL: Mild reddish, purplish hematoma on left anterior abdomen. Tenderness over hematoma only. No pain on palpation elsewhere. Abdomen soft, non-tender, nondistended. EXTREMITIES: No edema or joint tenderness. BACK: tire fabric impregnating range tender but free of any obvious external abnormalities. Patient exam notes decreased range of motion and muscle spasm, but no CVA tenderness, or vertebral point tenderness. There are no symptoms of cauda equina such as saddle anesthesia, and decreased reflexes, decreased sensation or strength. NEURO: AOx3. SKIN: No rash or erythema of visible areas Initial Vital Signs Initial Vital Signs: Vital Signs Temperature 97.9 F 06/14/20 23:17 Pulse Rate 82 06/14/20 23:17 Respiratory Rate 16 06/14/20 23:17 Blood Pressure 136/81 06/14/20 23:17 Pulse Oximetry 98 06/14/20 23:17 Course Orders Ordered: ED Orders 06/14/20 23:47 CT abdomen pelvis w con Stat Basic Metabolic Panel Stat Complete Blood Count AUTO DIFF Stat Prothrombin Time INR Stat Discontinued Medications Hydrocodone Bitart/Acetaminophen (Vicodin 5/325 Prepack) 1 bottle MISC SEEINSTR ONE Stop: 06/15/20 01:13 Last Admin: 06/15/20 01:19 Dose: 1 bottle Documented by: ROSSANA Hydromorphone HCl (Dilaudid) 0.5 mg IV NOW ONE Stop: 06/14/20 23:47 Last Admin: 06/14/20 23:59 Dose: 0.5 mg Documented by: ROSSANA Vital Signs Vital signs: Vital Signs - 8 hr 06/14/20 23:17 06/15/20 01:24 Temperature 97.9 F Pulse Rate 82 83 Respiratory Rate 16 16 Blood Pressure 136/81 137/80 Pulse Oximetry 98 98 MDM - Back Pain/Injury Lab Data Result diagrams: 06/14/20 23:47 06/14/20 23:47 Labs: Lab Results 06/14/20 06/14/20 06/14/20 Range/Units 23:47 23:47 23:47 WBC 7.1 (4.5-11.0) X10^3/uL RBC 4.07 L (4.5-5.9) X10^6/uL Hgb 13.2 L (13.5-17.5) g/dL Hct 38.7 L (41-53) % MCV 95.1 (80-100) fL MCH 32.5 (26-34) PG MCHC 34.2 (30-36) % RDW 13.3 (11.6-14.8) % Plt Count 219 (150-400) X10^3/uL Neut % (Auto) 64.0 (50-75) % Lymph % (Auto) 23.4 L (25-40) % [place] % (Auto) 11.9 (3-14) % Eos % (Auto) 0.5 L (2-4) % Baso % (Auto) 0.2 (0-2) % Neut # (Auto) 4500 (8065-8660) /uL Lymph # (Auto) 1700 (0052-4247) /uL [place] # (Auto) 800 (0-900) /uL Eos # (Auto) 0 (0-450) /uL Baso # (Auto) 0 (0-100) /uL PT 10.3 (10.1-12.7) SECONDS INR 0.9 (0.9-1.3) Sodium 140 (137-145) mmol/L Potassium 4.5 (3.4-5.1) mmol/L Chloride 113 H (98-107) mmol/L Carbon Dioxide 21 L (22-32) mmol/L BUN 27 H (9-20) mg/dL Creatinine 1.23 (0.66-1.25) mg/dL Estimated GFR > 60.0 (>60) mL/min BUN/Creatinine Ratio 22.0 (6-22) Glucose 48 L (70-100) mg/dL Calcium 8.3 L (8.4-10.2) mg/dL Point of Care Testing Glucose POC 81 Urine Dip Bedside Urine Glucose Negative Bedside Urine Bilirubin - Negative Bedside Urine Ketone + 15 Urine Specific [place] 1.030 Bedside Urine Occult Blood - Negative Bedside Urine pH 5.5 Bedside Urine Protein - Negative Bedside Urine Urobilinogen - Negative Bedside Urine Nitrite - Negative Bedside Urine Leukocytes - Negative Esterase Imaging Data CT scan - abdomen/pelvis: Radiologist's Impression: No acute process MDM Narrative Medical decision making narrative: Multiple etiologies for patient's symptoms considered including: [Spinal fracture versus internal bleeding versus retroperitoneal hematoma versus muscle spasm versus superficial hematoma versus other] Patient's symptoms improved over duration of stay with above-stated therapies. Findings and discharge diagnosis discussed with patient/family followed by verbalization of understanding Return precautions discussed with patient/family whom verbalize understanding. Discharge Plan Departure Patient Disposition: Home Clinical Impression: Abdominal contusion Qualifiers: Encounter type: initial encounter Qualified Code(s): S30.1XXA - Contusion of abdominal wall, initial encounter Discharge Date/Time: 06/15/20 01:24 Instructions: DI for Contusion Activity Restrictions/Additional Instructions: *You have been diagnosed with [abdominal contusion and abdominal wall hematoma] *What to do: *Take medications as directed *Follow up with your primary care provider in 2-3 days, call for an appointment. Let them know you were seen in the Emergency Department and that we ask that you be seen in follow up *Return to ER if you should have any new, worsening or concerning symptoms Prescriptions: No Action atorvastatin 40 mg tablet 40 mg PO DAILY RF: 0 carvedilol 6.25 mg tablet 6.25 mg PO BID RF: 0 esomeprazole magnesium 40 mg capsule,delayed release(DR/EC) 40 mg PO BID RF: 0 fluticasone propionate 50 mcg/actuation spray,suspension 1 spray INTRANASAL DIRECTED RF: 0 Eliquis 5 mg tablet 5 mg PO BID RF: 0 losartan 50 mg tablet 50 mg PO DAILY RF: 0 levothyroxine [Synthroid] 175 mcg tablet 175 mcg PO DAILY RF: 0 venlafaxine 75 mg capsule,extended release 24hr 75 mg PO DAILY RF: 0 meloxicam 15 mg tablet 15 mg PO DAILY RF: 0 venlafaxine 150 mg capsule,extended release 24hr 300 mg PO DAILYCC RF: 0 rizatriptan 10 mg tablet,disintegrating 10 mg PO PRN PRN (Reason: Migraine Headache) RF: 0 olopatadine [Patanol] 0.1 % drops 1 drp ophthalmic (eye) DIRECTED RF: 0 hydroxyzine HCl 25 mg tablet 25 mg PO DAILY RF: 0 zolpidem 5 mg tablet 5 mg PO BEDTIME RF: 0 loratadine 10 mg tablet 10 mg PO DAILY RF: 0 cholecalciferol (vitamin D3) [Vitamin D3] 125 mcg (5,000 unit) Tablet 5,000 unit PO DAILY RF: 0 hydrocodone-acetaminophen 5-325 mg tablet 1 tab PO Q4-6H PRN (Reason: pain) Qty: 10 RF: 0 ondansetron 4 mg tablet,disintegrating 4 mg PO TID-QID PRN (Reason: nausea and vomiting) Qty: 10 RF: 0
== END 2020-06-15 01:24 | disposition home or self-care (01) ==
PROVIDERS: Emergency Provider Emergency Medicine
DX: S30.1XXA Contusion of abdominal wall, initial encounter (principal); W19.XXXA Unspecified fall, initial encounter
CPT/HCPCS: 36415; 74177; 80048; 81003; 82962; 85025; 85610; 96374; 99284; J1170; Q9967

== ENCOUNTER → 2020-12-01 13:43 | Outpatient (CLI) | payer OTHER, SELFPAY ==
[2020-12-01 16:51] LABS: COVID19 -Nasal RAPID Negative (Negative)
== END ==
PROVIDERS: PCP Family Medicine; Visit Provider Nurse Practitioner
DX: Z20.822 Contact with and (suspected) exposure to COVID-19 (principal)
CPT/HCPCS: 87635

== ENCOUNTER 2020-12-02 11:29 | Day surgery (SDC) | payer OTHER, SELFPAY ==
[2020-11-30 15:00] VITALS: BMI 32.8
[2020-12-02] VITALS (16 sets, daily range): BP systolic 95–144; BP diastolic 5–80; PULSE 72–111; RESP 10–18; TEMP 36.3–37; O2SAT 80–97; BMI 34.2
--- NOTE | 2020-12-02 06:00 | DI.RAD.S_ITS ---
PROCEDURE: XR KNEE RT 1TO2V INDICATIONS: TKA TECHNIQUE: 2 view(s) of the knee acquired. [facility] [place], XR KNEE 4+ VIEWS RIGHT, 08/27/2020, 15:55. FINDINGS: Bones: Patient is status post knee joint arthroplasty. Hardware components are in expected positions. Visualized bony structures are intact. Soft tissues: Overlying postoperative changes are noted. Surgical drain is present. IMPRESSION: Satisfactory appearance of the right knee total arthroplasty. Dictated by: James Burgos M.D. on 12/02/2020 at 17:21 Approved by: James Burgos M.D. on 12/02/2020 at 17:21
[2020-12-02] MEDS: PREGABALIN 75 MG CAPSULE PO (12:04)
[2020-12-02] MEDS: ACETAMINOPHEN 325 MG TABLET 975 MG PO (12:05)
[2020-12-02] MEDS: CELECOXIB 200 MG CAPSULE PO (12:05)
[2020-12-02] MEDS: LACTATED RINGERS 1,000 ML 42 ML IV ×2 (12:20→14:38)
[2020-12-02] MEDS: VANCOMYCIN 1,000 MG/200 ML PIGGYBACK 200 MG IV (12:30)
--- NOTE | 2020-12-02 13:03 | PM.PREOP ---
Pre-operative Note COVID-19 COVID-19 status: Negative Interval Note History & Physical reviewed/Exam performed by Physician: Yes Changes to H&P: No
--- NOTE | 2020-12-02 13:03 | PM.OP.1 ---
Operative Date/Time/Diagnoses Date of procedure: 12/02/20 Time of procedure: 13:03 Pre-op diagnosis: right knee osteoarthritis Post-op diagnosis: same Procedure & Clinicians Procedure: right total knee arthroplasty Same procedure as scheduled: Yes Indications: The patient has had progressively worsening right knee pain with radiographic changes consistent with arthritis. Non-operative management has failed and the patient has requested total knee replacement. The risks, benefits and alternatives to surgery were discussed with the patient prior to proceeding. Risks discussed included, but were not limited to, failure to relieve pain, stiffness, infection, nerve damage, deep venous thrombosis, pulmonary embolism, stroke, coma, heart attack, permanent paralysis and , as well as the potential need for eventual revision of the prosthetic. Surgeon: Alejandra Sr Boat Canvas Installer: Williams Mcgrath Anesthesia Type: General and Spinal Operative Notes Findings: severe right knee osteoarthritis, good stability Closure Type: primary Specimen(s): none sent Prosthetic devices, grafts, tissues, transplants, or devices: Sr and Nephew Dheerajney BCS 2 size 8 femur, size 7 tibia, +10 poly, 38 oval patella Applied: drain(s) Estimated Blood Loss (mL): 250 Blood products transfused: none Tourniquet time (min): 81 Procedure in detail: The patient was seen in the pre-operative area, where the patient identified the right knee as the operative site and this was marked with my initials. The patient received pre-operative antibiotics, and was taken to the operating room and placed on the operative table in the supine position. After satisfactory anesthesia, a multimedia producer out was performed. The right leg was encircled with a tourniquet about the proximal thigh, and the leg was prepared from the toes to the tourniquet with ChloroPrep in the usual fashion and draped through sterile drapes. The leg was elevated and exsanguinated with Eschmark bandage and the tourniquet inflated to [250] mmHg pressure. The knee was approached through an approximately 18 cm incision centered over the patella and carried into the knee through a medial parapatellar arthrotomy. A portion of the medial and lateral meniscus was resected. Soft tissue was carefully mobilized around the patella the patella was measured with a caliper. Bone was resected from the patella and the patellar height was reconstituted with up an appropriate sized patellar component. A cover was then placed on the patella. A small amount of additional medial and lateral meniscus was resected. The distal femur was cut at 5?. A [+2] cut was used. It looked like an appropriate distal femoral cut and the cut was made without difficulty. An extramedullary guide was used for the tibial cut. 10 mm was resected off the least affected side.The tibia was prepared. The rotation was assessed. The patient was placed in extension residual medial and lateral meniscus as well as any residual bone was carefully resected. [No] additional tibia was resected. Hemostasis was achieved especially posteriorly. Additional local was injected into the posterior capsule. The extension gap was assessed and additional releases for gap balancing were performed as necessary. It was checked with the gap b2b outside sales representative. The femoral component was trial was placed and the notch was finished. The rotation was assessed and the appropriate size femoral guide was placed on the distal femur and finishing cuts were made. There was no evidence of notching. The anterior, posterior and chamfer cuts were then made. The posterior osteophytes and soft tissues were then removed. The posterior capsule was injected with part of a mixture of 60 ml 0.25% Marcaine mixed with 20 ml Exparel for post operative pain control. The remainder of this mixture was injected into the capsule and subcutaneous tissues during cement curing.l tibial and femoral components were then placed and the knee placed through a range of motion. Range of motion was [0-130], with good stability throughout the range. The trials were then removed, and the tibia was finished. The bone was prepared with pulsatile lavage, and dried with a sponge. Cement was applied and the final prosthetics placed. Excess cement was removed during and after cement curing. A brief Betadine soak was performed. After confirming there was no extruded cement posteriorly, the final tibial insert was placed. The knee was copiously irrigated and the tourniquet deflated. Hemostasis was obtained with the [Aquamantys system]. A drain was placed and brought out superolaterally. The capsule was closed with interrupted nonabsorbable suture. The subcutaneous layer was closed with barbed sutures, and the skin with a running 3-0 V-Lock suture and Surgical glue. An Aquacel Ag dressing was applied and the patient was taken to recovery having tolerated the procedure well. Complications: none Post-operative Condition: stable Disposition: Acute Care Plan for aftercare: The patient will be maintained on a standard total knee replacement protocol with weight bearing as tolerated. The patient will receive Eliquis and sequential compression devices for DVT prophylaxis. The patient will be discharged home when safe for the home environment.
--- NOTE | 2020-12-02 13:27 | SUR.OPER ---
Supine on padded OR bed. Pillow under head, arms secured on padded armboards <90 degree abduction. Safety belt across torso. Non-operative leg secured with tape over blanket over lower leg. Operative leg secured in DeMayo/Gal positioner. Foam padded brace at thigh of operative leg.
[2020-12-02] MEDS: CEFAZOLIN 2 GM/100 ML FROZ.PIGGY IV ×2 (13:50→21:58)
[2020-12-02] MEDS: BUPIVACAINE LIPOSOME 266 MG/20 ML VIAL INJ (14:25)
[2020-12-02] MEDS: BUPIVACAINE 0.25% W/ EPI (PF) 10 ML VIAL 60 ML INJ (14:26)
[2020-12-02] MEDS: OXYCODONE IR 5 MG TABLET PO ×2 (16:58→21:57)
[2020-12-02] MEDS: LACTATED RINGERS 1,000 ML 100 ML IV (17:54)
[2020-12-02] MEDS: hydrOXYzine pamoate 25 MG CAPSULE PO (19:54)
[2020-12-02] MEDS: carvediloL 12.5 MG TABLET 25 MG PO (21:56)
[2020-12-02] MEDS: GABAPENTIN 600 MG TABLET 1200 MG PO (21:56)
[2020-12-02] MEDS: PANTOPRAZOLE 40 MG TABLET PO (21:57)
[2020-12-02] MEDS: ACETAMINOPHEN 325 MG TABLET 650 MG PO (21:57)
[2020-12-03] VITALS: BP 117/68; PULSE 101; RESP 15; TEMP 37.5; O2SAT 90
[2020-12-03] MEDS: OXYCODONE IR 5 MG TABLET PO ×5 (00:28→12:09)
[2020-12-03] MEDS: hydrOXYzine pamoate 25 MG CAPSULE PO ×2 (00:29→03:34)
[2020-12-03 04:00] VITALS: BP 104/60; PULSE 94; RESP 17; TEMP 36.8; O2SAT 90
[2020-12-03] MEDS: LACTATED RINGERS 1,000 ML 100 ML IV (04:43)
--- NOTE | 2020-12-03 05:13 | PC.NURSE ---
pt was strait cathed at about 0430, pt tried to use the toilet and was not successful, strait cath out put 750mls, urine was clear yellow, min red blood when cath removed, pt reports relieved of pressure and lying in bed and requesting to let sleep.
[2020-12-03 06:04] LABS: Hematocrit 36.2 % (41-53)
[2020-12-03] MEDS: CEFAZOLIN 2 GM/100 ML FROZ.PIGGY IV (06:06)
--- NOTE | 2020-12-03 06:22 | RT ---
Pt did not wear hospital CPAP machine last night per RN.
[2020-12-03] MEDS: LEVOTHYROXINE 100 MCG TABLET PO (06:27)
[2020-12-03] MEDS: LEVOTHYROXINE 75 MCG TABLET PO (06:28)
--- NOTE | 2020-12-03 07:56 | PM.PNPO.1 ---
Subjective Subjective Date Patient Seen: 12/03/20 Time Patient Seen: 07:56 Interval history: Patient's pain is moderate to severe. Denies fever or chills. No nausea or vomiting. Exam Vital Signs (past 8 hours): - 12/03/20 00:00 12/03/20 04:00 Temperature 99.5 F 98.2 F Pulse Rate 101 H 94 H Respiratory Rate 15 17 Blood Pressure 117/68 104/60 Pulse Oximetry 90 L 90 L Oxygen Delivery Method Room Air Oxygen Flow Rate 0 Narrative Exam Narrative: 60-year-old male standing at bedside getting dressed. Patient in no apparent distress. Dressing is clean, dry and intact. Motor functions intact distally. Objective Labs Result Diagrams: 12/03/20 05:37 Labs: Laboratory Results - last 24 hr 12/03/20 05:37 Hgb 12.0 L Hct 36.2 L PFSH Medical History Former smoker GERD (gastroesophageal reflux disease) Hyperlipidemia Hypertension WARD (obstructive sleep apnea) PFO (patent foramen ovale) Primary osteoarthritis of right knee Pulmonary emboli (~08/05/19) Stroke (~08/05/18) Unilateral post-traumatic osteoarthritis, right knee Surgical History History of Jeniffer fundoplication Social History household members: spouse and children Smoking Status: Former smoker alcohol intake: never Assessment & Plan Post-op Postoperative Procedures: Procedures Operation Date: 12/02/20 13:45 Actual Procedures Side Surgeon p Total Knee Arthroplasty Right Alejandra Sr MD Patient progressing as expected status post right total knee arthroplasty. Mobilize with physical therapy. Likely discharge home later this afternoon. Patient had difficulty urinating overnight and was straight cathed x2. Patient will be started on Flomax. Quality VTE Deep Vein Thrombosis/Pulmonary Embolism Present on Admission: No
[2020-12-03 08:55] VITALS: BP 144/84; PULSE 107; RESP 18; TEMP 37; O2SAT 93
[2020-12-03] MEDS: CHOLECALCIFEROL (VITAMIN D3) 5,000 UNIT TABLET 5000 UNIT PO (09:01)
[2020-12-03] MEDS: ACETAMINOPHEN 325 MG TABLET 650 MG PO (09:01)
[2020-12-03] MEDS: TAMSULOSIN 0.4 MG CAPSULE PO (09:02)
[2020-12-03] MEDS: PANTOPRAZOLE 40 MG TABLET PO (09:02)
[2020-12-03] MEDS: DOCUSATE 100 MG CAPSULE PO (09:02)
[2020-12-03 09:03] VITALS: BP 144/84; PULSE 107
[2020-12-03] MEDS: ATORVASTATIN 20 MG TABLET 40 MG PO (09:03)
[2020-12-03] MEDS: VENLAFAXINE ER 75 MG CAP 150 MG PO (09:04)
[2020-12-03 09:10] VITALS: BP 144/84; PULSE 107
[2020-12-03] MEDS: carvediloL 12.5 MG TABLET 25 MG PO (09:10)
[2020-12-03] MEDS: AMITRIPTYLINE 25 MG TABLET 50 MG PO (09:10)
[2020-12-03] MEDS: GABAPENTIN 600 MG TABLET 1200 MG PO (09:13)
--- NOTE | 2020-12-03 09:40 | PT.IIE ---
Current Diagnoses Obstructive sleep apnea (adult) (pediatric) (12/02/20) Essential (primary) hypertension (12/02/20) Other pulmonary embolism without acute cor pulmonale (12/02/20) Cerebral infarction, unspecified (12/02/20) Gastro-esophageal reflux disease without esophagitis (12/02/20) Unilateral primary osteoarthritis, right knee (12/02/20) Unilateral post-traumatic osteoarthritis, right knee (12/02/20) Atrial septal defect (12/02/20) Personal history of nicotine dependence (12/02/20) Surgery Performed Operation Date: 12/02/20 13:45 Actual Procedures p Total Knee Arthroplasty(Right) - Alejandra Sr MD Surgical History (Last Reviewed 12/03/20 @ 11:27 by Williams Mcgrath PA-C) History of Jeniffer fundoplication Medical History (Last Reviewed 12/03/20 @ 11:27 by Williams Mcgrath PA-C) Former smoker GERD (gastroesophageal reflux disease) Hyperlipidemia Hypertension WARD (obstructive sleep apnea) PFO (patent foramen ovale) Primary osteoarthritis of right knee Pulmonary emboli (~08/05/19) Stroke (~08/05/18) Unilateral post-traumatic osteoarthritis, right knee Physical Therapy Inpatient Evaluation/Re-Eval M1 PT/OT-IP Prior Functional Status Start: 12/03/20 12:14 Freq: NEEDED Status: Discharge Protocol: Document 12/03/20 09:40 AB (Rec: 12/03/20 12:34 AB [id number]) Medical Review Prior Functional Status Medical History Reviewed Yes Communication able to make needs known Mobility and Gait pt stated that he is independent with all mobilities and ambulation without AD indoors but occasionally uses a SPC; uses SPC for outdoor mobility and stair climbing Social History Household Members spouse,children Number of Floors (Floors) 3 or More Floors Number of Stairs To Enter/Railing? 2 stpes to enter without rails 14 steps with L rail to 2nd level of the house Home Environment Standard Height Toilet,Walk in Shower Home Equipment Straight Cane,Hand Held Shower ,Grab Bars In Shower M2 PT-IP Current Condition Start: 12/03/20 12:14 Freq: NEEDED Status: Discharge Protocol: Document 12/03/20 09:40 AB (Rec: 12/03/20 12:34 AB [id number]) Physical Therapy Current Condition Current Condition Evaluation Date 12/03/20 Treatment Diagnosis s/p R TKA; difficulty in walking Onset Date 12/02/20 Weight Bearing Status Weight Bearing Status Weight Bear as Tolerated Allowed Weight Bearing Amount (enter % RLE WBAT or #) (%) M3 PT-IP Subjective Start: 12/03/20 12:14 Freq: NEEDED Status: Discharge Protocol: Document 12/03/20 09:40 AB (Rec: 12/03/20 12:34 AB [id number]) Subjective Physical Therapy Visit Type Type Initial Evaluation Visit Start Time 09:40 Visit Stop Time 10:37 Total Visit Minutes 57 Number of VIOLIN MECHANIC Visits 0 Therapy Pain Assessment Pain When Pain Assessed At Rest Pain Present Pain Present Pain Reported M4 PT-IP Mobility and Gait Start: 12/03/20 12:14 Freq: NEEDED Status: Discharge Protocol: Document 12/03/20 09:40 AB (Rec: 12/03/20 12:34 [id number]) PT-Transfer Assessment Sit to and From Stand Sit to and from Stand Standby Assistance Equipment Transfer Assistive Device None,Gait Belt Transfers Transfer Destination Chair Transfer Technique ambulated Transfer Ability Level of Assist Standby Assistance,Use of Upper Extremities Comments Mobility Comments pt ambulated without AD SBA in room. presents with antalgic gait but without LOB. pt can be impulsive. ambulated in the hallway using FWW SBA ~ 250 ft. completed up/down steps 30 steps using SPC and L rail SBA and cues. also completed platform step x 2 sets using SPC CGA. ambulated back to his room SBA using FWW. recommending use of FWW for long distance ambulation. pt does not have FWW for home use and wanted one dispensed before he goes home. requested MD order for FWW with extenders as pt is tall ( 6'5). pt signed papers. Gait Assessment Gait Gait Assistance Required: Standby Assistance Distance (Feet) 250 Able to Maintain Weight Bearing Status Yes During Gait Assistive Devices Assistive Device Gait Belt,Front Wheeled Walker Orthotic/Prosthetic Devices or Brace: No Factors Limiting Gait Function Factors Limiting Gait Function Decreased Activity Tolerance, Decreased Strength,Limited Range of Motion,Pain,Poor Balance,Poor Safety Awareness Stair Climbing Assessment Evaluation Level of Assist On Stairs Standby Assistance Devices Stair Climbing Assistive Devices Straight Cane,Left Railing Technique/Endurance Stair Climbing Direction Ascend and Descend Stair Climbing Technique Step to Step Number of Steps Climbed 30 Query Text: Stair Climbing Set # Repetitions (reps) 1 Comments Stair Climbing Comments pls refer to mobility section for details PT-Balance Assessment Sitting Balance and Reactions Static Sitting Balance Ability Normal Dynamic Sitting Balance Ability Normal Standing Balance and Reactions Static Standing Balance Ability Good Dynamic Standing Balance Ability Fair Device Used without AD M5 PT-IP Objective Assessments Start: 12/03/20 12:14 Freq: NEEDED Status: Discharge Protocol: Document 12/03/20 09:40 AB (Rec: 12/03/20 12:34 AB [id number]) Orientation Orientation/Cognition Level of Alertness Alert Orientation Name,Place,Situation Language Function Ability No Deficits Noted Safety Awareness Understands Safety Issues Memory Description Short Term Impaired Strength Lower Extremity Strength Assessment Right Impaired Hip 4+/5 Knee 3+/5 Coordination Assessment Gross Coordination Gross Coordination WNL Muscle Tone Muscle Tone WNL Yes M6 PT-IP Treatment Start: 12/03/20 12:14 Freq: NEEDED Status: Discharge Protocol: Document 12/03/20 09:40 AB (Rec: 12/03/20 12:34 AB [id number]) Physical Therapy Treatment Education Education Provided Precautions,Weight Bearing Status,Post-Op Packet,Safety Equipment Issued Equipment Type and Company FWW: dispensed; obtained orders and pt signed papers M7 PT-IP Assessment and Plan Start: 12/03/20 12:14 Freq: NEEDED Status: Discharge Protocol: Document 12/03/20 09:40 AB (Rec: 12/03/20 12:34 AB [id number]) PT Summary Assessment and Plan Potential Rehabilitation Potential Good Status of Condition at Evaluation Stable Summary Impairments Pain,ROM,Strength,Balance, Coordination,Sensation,Tone, Cognition,Bed Mobility, Transfers,Gait,Activity Tolerance Assessment Summary pt requires SBA with mobility for safety. pt is able to ambulate without AD short distances SBA but recommending use of FWW for long distance/ uneven surfaces for safety. pt plans to go home and spouse to assist him. pt stated that he is set up for outpt PT . Goals Bed Mobility Goal Independent Transfer Goal Independent,Front Wheeled Walker Gait Goal Independent,Front Wheel Walker Gait Distance 300 Other Goals improve ambulation without AD mod I 200 ft up/down 14 steps L rail + SPC mod I; 2 steps without rails using SPC mod I Days to Meet Goals 3 Frequency of Treatment Frequency Of Treatment Twice a Day Treatment Plan Physical Therapy Treatment Plan Bed Mobility Training,Transfer Training,Gait Training, Therapeutic Exercise,Balance Retraining,Post Op Education, Discharge Planning,Hot or Cold Pack,Neuromuscular Re-ed, Coordination Retraining,Manual Therapy Other Recommendations and Next Treatment ambulation, stair climbing Focus Recommendations To Nursing Amount of Assist Needed Standby Assistance Discharge Recommendations PT Discharge Recommendations Home with Assistance, Outpatient PT Transportation Needs at Discharge Private Vehicle
--- NOTE | 2020-12-03 11:25 | PM.DS.1 ---
History of Present Illness History of Present Illness Date Patient Seen: 12/03/20 Time Patient Seen: 11:26 Chief complaint: Right Total Knee Arthroplasty *OPB* Narrative: See progress note Discharge Providers Provider Discharge Date: 12/03/20 Primary care physician: Morales Garza MD Consults: 11/30/20 15:52 Consult to Anesthesiology Routine Comment: Consulting Provider: Anesthesiologist Reason for consultation: Cardiac Has provider been notified: Yes Consult to Respiratory Therapy Evaluate & Treat Comment: Physician Instructions: Evaluate and treat 12/02/20 06:00 Consult to Anesthesiology Routine Comment: Consulting Provider: Anesthesiologist Reason for consultation: Regional block for post operative pain control 12/02/20 12:19 Consult to Respiratory Therapy Evaluate & Treat Comment: Physician Instructions: Evaluate and treat 12/02/20 17:33 Consult to Discharge Planning Routine Comment: Consult to Physical Therapy Evaluate & Treat Comment: Physician Instructions: postop TKA protocol Consult to Respiratory Therapy Evaluate & Treat Comment: Physician Instructions: Evaluate and treat Discharge provider: Williams Mcgrath PA-C Summary Hospital Course Discharge Diagnosis: right knee osteoarthritis Urinary retention status post surgery. Patient required straight catheterization x2. Patient placed on Flomax. Patient able to urinate on his own this morning. Hospital Course: Pre-op diagnosis: right knee osteoarthritis Post-op diagnosis: same Procedure & Clinicians Procedure: right total knee arthroplasty Same procedure as scheduled: Yes Indications: The patient has had progressively worsening right knee pain with radiographic changes consistent with arthritis. Non-operative management has failed and the patient has requested total knee replacement. The risks, benefits and alternatives to surgery were discussed with the patient prior to proceeding. Risks discussed included, but were not limited to, failure to relieve pain, stiffness, infection, nerve damage, deep venous thrombosis, pulmonary embolism, stroke, coma, heart attack, permanent paralysis and , as well as the potential need for eventual revision of the prosthetic. Surgeon: Alejandra Sr Sales Merchandising Specialist: Williams Mcgrath Anesthesia Type: General and Spinal Operative Notes Findings: severe right knee osteoarthritis, good stability Closure Type: primary Specimen(s): none sent Prosthetic devices, grafts, tissues, transplants, or devices: Sr and Nephew Journey BCS 2 size 8 femur, size 7 tibia, +10 poly, 38 oval patella Applied: drain(s) Estimated Blood Loss (mL): 250 Blood products transfused: none Tourniquet time (min): 81 Patient admitted to the hospital for right knee osteoarthritis. Patient consented for right total knee arthroplasty. Patient taken operating room underwent right total knee arthroplasty. Patient recovering well as in stable condition. Discharge home today in stable condition. Status at Discharge Cognitive/behavioral status at discharge: at baseline, oriented Functional status at discharge: uses cane/walker Overall status at discharge: patient is progressing back to baseline Time Spent with Patient Time spent: Less than 30 minutes Exam Vital Signs (past 8 hours): - 12/03/20 04:00 12/03/20 08:55 12/03/20 09:03 Temperature 98.2 F 98.6 F Pulse Rate 94 H 107 H 107 H Respiratory Rate 17 18 Blood Pressure 104/60 144/84 H 144/84 H Pulse Oximetry 90 L 93 12/03/20 09:10 Temperature Pulse Rate 107 H Respiratory Rate Blood Pressure 144/84 H Pulse Oximetry Oxygen Delivery Method Room Air Oxygen Flow Rate 0 Narrative Exam Narrative: See progress note Objective Labs Result Diagrams: 12/03/20 05:37 Labs: Laboratory Results - last 24 hr 12/03/20 05:37 Hgb 12.0 L Hct 36.2 L PFSH Medical History Former smoker GERD (gastroesophageal reflux disease) Hyperlipidemia Hypertension WARD (obstructive sleep apnea) PFO (patent foramen ovale) Primary osteoarthritis of right knee Pulmonary emboli (~08/05/19) Stroke (~08/05/18) Unilateral post-traumatic osteoarthritis, right knee Surgical History History of Jeniffer fundoplication Social History household members: spouse and children Smoking Status: Former smoker alcohol intake: never Discharge Assessment & Plan Assessment and Plan Assessment: Patient stable status post right total knee arthroplasty Plan of Treatment: Discharge home today in stable condition Discharge Plan Discharge Plan Patient Disposition: Home Provider Discharge Comment: discharge to home after cleared by therapy. Discharge orders & Medications Discharge Orders: Discharge (Order); Ordered 12/03/20 Ordered By: Williams Mcgrath Prescriptions: New acetaminophen 325 mg Tablet 650 mg PO TID Qty: 60 RF: 0 polyethylene glycol 3350 17 gram Powder In Packet 17 gm PO DAILY PRN (Reason: Constipation) Qty: 20 RF: 0 oxycodone 5 mg Tablet 5 mg PO Q3HR PRN (Reason: Pain, Moderate (4-6)) Qty: 60 RF: 0 hydroxyzine pamoate 25 mg Capsule 25 mg PO Q4HR PRN (Reason: itching/nausea) Qty: 30 RF: 0 (DME) walker Misc See Rx Instructions .ROUTE .MEDSUPPLY Qty: 1 RF: 0 Continued atorvastatin 40 mg tablet 40 mg PO DAILY RF: 0 esomeprazole magnesium 40 mg capsule,delayed release(DR/EC) 40 mg PO BID RF: 0 fluticasone propionate 50 mcg/actuation spray,suspension 1 spray INTRANASAL DIRECTED RF: 0 Eliquis 5 mg tablet 5 mg PO BID RF: 0 losartan 50 mg tablet 50 mg PO DAILY RF: 0 venlafaxine 150 mg capsule,extended release 24hr 150 mg PO DAILY RF: 0 olopatadine [Patanol] 0.1 % drops 1 drp EYE-BOTH DIRECTED PRN (Reason: Allergies) RF: 0 cholecalciferol (vitamin D3) [Vitamin D3] 125 mcg (5,000 unit) Tablet 5,000 unit PO BID RF: 0 levothyroxine [Synthroid] 175 mcg Tablet 175 mcg PO DAILY RF: 0 fexofenadine 180 mg Tablet 180 mg PO BID PRN (Reason: Allergies) RF: 0 polyethylene glycol 3350 [Miralax] 17 gram/dose Powder 17 g PO PRN PRN (Reason: Constipation) RF: 0 diclofenac sodium 1 % Gel 1 ea TOPICAL PRN PRN (Reason: Pain) RF: 0 carvedilol 25 mg Tablet 25 mg PO BID RF: 0 gabapentin 600 mg Tablet 1,200 mg PO TID RF: 0 amitriptyline 50 mg Tablet 50 mg PO DAILY RF: 0 tamsulosin 0.4 mg Capsule 0.4 mg PO BEDTIME RF: 0 Follow up/Referrals: Morales Garza MD [Primary Care Provider] - Alejandra Sr MD [Physician] - (2 weeks) Diet/Activity/Treatments Diet: Diet as Tolerated Activity: Walk multiple times a day. Cold/Heat Therapy: Use ice multiple times a day. Other treatments: Resume your Eliquis to prevent blood clots. Skin/Wound/Dressing Care Report to your healthcare provider any signs of infection, such as:: chills, fever, night sweats, increased pain, unusual drainage and unusual redness Dressing: Remove Jarred wrap. Leave deep dressing on. Okay to shower. Visit Report/Discharge Packet Instructions: DI for Knee Replacement Stand Alone Forms: Surgery Discharge Discharge Data Primary Care Provider: Morales Garza Attending Provider: Alejandra Sr VTE Deep Vein Thrombosis/Pulmonary Embolism Present on Admission: No
--- NOTE | 2020-12-03 11:55 | CM.DANOTE ---
Addendum entered by Agustina Madera LPN 12/03/20 12:04: Met with pt and his Yessica after EMR reviewed and noting the d/c order. No PT note yet available. Introduced self and role. Pt is a 60 year old male who admitted yesterday for a scheduled R TKA Payer: [facility] Admission status: SDC/confirmed by UR CLARENCE Guzmán. Pt reports that he has worked with PT this morning and been cleared for home. He plans OUTPT PT at [facility] He states is now voiding without problem. Already has flomax at home and has been seeing a urologist for his prostate problems. He and his are just waiting for CLARENCE Nino to complete the d/c process. Mica is aware of same. P: home today as per planned. Original Note: Discharge Planning/Care Management CM Discharge Assessment Start: 12/03/20 11:54 Freq: Status: Active Protocol: Document 12/03/20 11:54 ITV (Rec: 12/03/20 11:55 ITV [id number]) Discharge Planning Assessment Advance Directives? No Advance Directives on File No History Provided By Patient,Medical Record Prior Living Arrangements House Household Members spouse,children Is patient alert and oriented? Yes Pre-Anesthesia Assessment Start: 11/30/20 07:44 Freq: Status: Active Protocol: Document 11/30/20 15:00 VLJ (Rec: 11/30/20 08:00 [facility] [id number]) Pre-Anesthesia Assessment Preferred Name Ian Patient Information Reviewed Via Chart Review,Phone Assessment Assessment Completed With Patient H&P Completed Within 30 Days Yes Diagnostic Results BMP/CMP,CBC,EKG,PT/INR, Urinalysis,Other Comment A1c, Will call to schedule Covid test Primary Care Provider Rosalind Gonzalez Medical Clearance Received Yes Seen Specialist in Last 12 Months Yes Specialist Seen Charging Operator,Orthopedist Comment Loyd BUI Primary Language Slovenian Coffee Grinder Required No Height 193.04 cm Weight 122.47 kg Body Mass Index (BMI) 32.8 Hearing Ability Normal Visual Impairment Partially Limited Visual Assist Glasses Dentition Type Teeth, Natural Present Barriers to Learning Visual Other Aids No Hx Anesthesia Reactions No Hx Family Anesthesia Reaction No Hx Malignant Hyperthermia No Hx Blood Transfusions No Hx Blood Transfusion Reaction No Anesthesia Review Requested Yes: Cardiac Town Manager No alcohol intake former alcohol intake frequency 3 or more drinks per day Smoking Status Former smoker Tobacco type cigarettes how long ago did patient quit smoking 1994 Substance Use Type does not use Pain Present Pain Reported Comment Low back, right knee Musculoskeletal Symptoms Abnormal Gait,Back Pain, Difficulty Walking,Joint Pain, Joint Stiffness,Joint Swelling ,Limited Range of Motion, Muscle Spasms,Muscle Weakness, Myalgias,Neck Pain,Numbness, Radiating Pain into Limb, Tingling,Tremors History of Falling (Recent or History of Yes ) Comment after my stroke, my right side went to [facility].... learned to walk wrong Patient is completely paralyzed or No completely immobile Ambulatory Aid Crutches/cane/walker Prosthesis or Orthotic Device Cane Gait/Transferring Weak,Impaired Mental Status Oriented to own ability Is patient on oxygen? No Does patient have BLOUNT/SOB Yes Hx Sleep Apnea Yes CPAP/BIPAP use prescribed and used routinely Will Bring CPAP/BIPAP DOS Yes Currently Taking a Beta Renetta Yes: Carvedilol Can You Climb a Flight of Stairs Without No SOB Hx Chest Pain Yes: R/T PE Hx SOB Yes Hx Syncope or Dizziness Yes: Dizziness 5-10x/week, impaired balance Anti-Coagulant Therapy Yes: Lifelong, Eliquis; instructed to stop 2 days prior to surgery & resume [facility]USA Has a Charging Operator Yes: Owen Cardiac Testing Yes: Zio Patch 09/24 Hx Pacemaker/ICD No Cardiac Clearance Received Yes Comment Recommends compression stockings and low molecular weight heparin or Additional comment heparin infusion until Eliquis can be resumed Diet Type At Home Regular dysphagia No Gastrointestinal Symptoms Constipation,Reflux Comment Bites tongue often when sleeping, dumping syndrome w/ juice or sweets on emp Bladder Pattern Frequency,Hesitancy,Nocturia, Retention,Urgency Urinary Catheter Present No Hx Urinary Self Catheterization No Diabetes No Hx Drug Resistant Organism No Presence of External or Internal Medical No Devices Have you had any close contact with No someone diagnosed with COVID-19? Are you experiencing any of these No symptoms symptoms? Evaluation/Screening for possible COVID- Yes 19 infection completed? Comment no symptoms outside of his norm Marital Status Lives With spouse Prior Living Arrangements House Number of Floors (Floors) 3 or More Floors Number of Stairs To Enter/Railing? 1 step into house, needs to navigate stairs in home Support System Child/Children,Spouse Does the Patient Have Assistance After Yes Surgery Patient Discharge Plan Description Home Health Comment Adult dependent child able to help Feels Safe in Current Environment Yes Been Physically Hurt or Threatened By a No Person in Current Environment Do you have thoughts of harming yourself None or others? Are you currently considering suicide? No Do you have a plan to hurt yourself or No Plan others? Do You Have Any Spiritual Beliefs That No May Affect Your HC Choices? Do You Have Any Cultural Practices That No May Affect Your HC Choices? Who Can We Speak to About Patient's Care Friends & Family Identifying Code for Release of Patient Declined Information Health Care Proxy/Next of Kin - Yessica Fuller; if decision to pull the plug, consult daughter & Health Care Proxy Emergency Contact Name - Yessica Fuller Emergency Contact Comment daughter Jewels Watters ( neuro RN) [phone], Advance Directives? No Power of Appellate Law Clerk No PAC Instructions Assistance for 24 hours post- op,Bring CPAP/BIPAP,Do not shave/clip surgical site, Durable medical equipment, Medications to take/avoid, Nasal antibiotic,No ETOH/ petroleum product on skin DOS, NPO,Ortho class,Pre-op antibiotic,Pre-surgical wash, Sensory aids,Sturdy shoes/ comfortable clothes,Do not bring valuables and remove jewelry Comment Didn't know about hibiclens/ mupirocin ointment, walker, or Additional comment toilet riser. Pt will call [facility] for RX
--- NOTE | 2020-12-03 12:30 | PC.NURSE ---
Day shift note: Patient discharged home per MD order, and cleared by PT. Voiding without any difficulty. Dressed independently. Discussed importance of F/U with Ortho in 2 weeks, s/sx of infections, new medications, mobility restrictions, and dressing care. FWW provided by PT. Both patient and spouse verbalized understanding of instructions. Home via private vehicle.
== END 2020-12-03 12:20 | disposition home or self-care (01) ==
LOC: OR 11:34 → AC 11:35
PROVIDERS: PCP Family Medicine; Referring Provider Orthopaedic Surgery; Visit Provider Orthopaedic Surgery
PROC: 0SRC0JZ Replacement of Right Knee Joint with Synthetic Substitute, Open Approach (ICD-10-PCS; CPT 27447; principal; 2020-12-02 13:45)
DX: M17.11 Unilateral primary osteoarthritis, right knee (principal); Z86.711 Personal history of pulmonary embolism; Z79.01 Long term (current) use of anticoagulants; I69.351 Hemiplegia and hemiparesis following cerebral infarction affecting right dominant side; I10 Essential (primary) hypertension; K21.9 Gastro-esophageal reflux disease without esophagitis; E03.9 Hypothyroidism, unspecified; G47.33 Obstructive sleep apnea (adult) (pediatric); Z87.891 Personal history of nicotine dependence
CPT/HCPCS: 27447; 36415; 73560; 85014; 85018; 94760; 97116; 97161; C1776; C9290; J0690; J1100; J2250; J2274; J2405; J2704

== ENCOUNTER → 2021-03-24 13:49 | Outpatient (CLI) | payer OTHER, SELFPAY ==
[2020-12-02 18:45] VITALS: BMI 34.2
--- NOTE | 2021-03-24 | DI.MRI.S_ITS ---
PROCEDURE: MR HEAD/BRAIN WO CON INDICATIONS: Mild cognitive impairment, so stated TECHNIQUE: Noncontrast axial T1 spin echo, axial T2 fast spin echo, sagittal and axial FLAIR, coronal T2 fast spin echo, axial gradient echo, axial diffusion and ADC through the brain. COMPARISON: None. FINDINGS: Image quality: Excellent. CSF Spaces: Basal cisterns are patent. No extra-axial fluid collections. Ventricles are normal in size and shape. Brain: No intracranial masses or hemorrhage. Pfeiffer/white matter interface is normal. Brainstem appears normal. Diffusion-weighted images demonstrate no acute ischemic insult. No chronic ischemic insults. Normal intravascular flow voids are present. Skull and face: Calvarium has normal marrow signal. Orbits appear normal. Sinuses: Sinuses and mastoids are clear. IMPRESSION: 1. No acute intracranial disease process. 2. No areas of acute or chronic infarction. 3. No abnormal intracranial mass or mass effect. Dictated by: Rut Izaguirre MD, PhD on 03/24/2021 at 15:02 Approved by: Rut Izaguirre MD, PhD on 03/24/2021 at 15:04
== END ==
PROVIDERS: PCP Family Medicine; Referring Provider Family Medicine; Visit Provider Family Medicine
DX: G31.84 Mild cognitive impairment of uncertain or unknown etiology (principal)
CPT/HCPCS: 70551

== ENCOUNTER 2023-03-22 13:58 | Observation (INO) | payer OTHER, SELFPAY ==
[2020-12-02 18:45] VITALS: BMI 34.2
[2023-03-22] VITALS (25 sets, daily range): BP systolic 131–166; BP diastolic 81–95; PULSE 49–66; RESP 10–24; TEMP 36.2–36.8; O2SAT 94–99; BMI 29.7
--- NOTE | 2023-03-22 14:11 | DI.RAD.S_ITS ---
PROCEDURE: XR CHEST 1V INDICATIONS: Shortness of breath TECHNIQUE: One view of the chest was acquired. COMPARISON: [facility], , CHEST 2 VIEW, 11/02/2014, 18:55. FINDINGS: Surgical changes and devices: None. Lungs and pleura: Lungs are clear. No pleural effusions or pneumothorax. Mediastinum: Mediastinal contours appear normal. Heart size is normal. Bones and chest wall: No suspicious bony lesions. Overlying soft tissues appear unremarkable. IMPRESSION: No acute cardiopulmonary process. Dictated by: Ja Farnsworth M.D. on 03/22/2023 at 14:37 Approved by: Ja Farnsworth M.D. on 03/22/2023 at 14:37
[2023-03-22 14:36] LABS: Add Manual Diff / Slide Review NO; Basophils Absolute Auto 0 /uL (0-100); Basophils Percent Auto 0.7 % (0-2); Eosinophils Absolute Auto 0 /uL (0-450); Eosinophils Percent Auto 0.6 % (2-4); Hematocrit 44.2 % (41-53); Hemoglobin 14.8 g/dL (13.5-17.5); Lymphocytes Absolute Auto 1400 /uL (1100-4500); Lymphocytes Percent Auto 29.4 % (25-40); Mean Corpuscular HGB Conc 33.5 % (30-36); Mean Corpuscular Hemoglobin 30.4 PG (26-34); Mean Corpuscular Volume 90.7 fL (80-100); Monocytes Absolute Auto 400 /uL (0-900); Neutrophils Absolute Auto 2800 /uL (1500-7000); Neutrophils Percent Auto 61.3 % (50-75); Platelet Count 205 X10^3/uL (150-400); Red Blood Cell Count 4.87 X10^6/uL (4.5-5.9); Red Cell Distribution Width 13.2 % (11.6-14.8); White Blood Cell Count 4.6 X10^3/uL (4.5-11.0)
[2023-03-22 14:44] LABS: Lactate (Lactic Acid) 0.6 mmol/L (0.7-2.1)
[2023-03-22 14:45] LABS: Alanine Aminotransferase 32 IU/L (<50); Albumin 4.3 g/dL (3.5-5.0); Albumin Globulin Ratio 1.7 (1.0-2.8); Alkaline Phosphatase 58 U/L (38-126); Aspartate Aminotransferase 26 IU/L (17-59); BUN Creatinine Ratio 22.4 (6-22); Bilirubin Total 0.9 mg/dL (0.2-1.3); Blood Urea Nitrogen 28 mg/dL (9-20); Calcium 9.6 mg/dL (8.4-10.2); Carbon Dioxide 31 mmol/L (22-32); Chloride 102 mmol/L (98-107); Estimated Glomerular Filt Rate > 60 mL/min (>60); Globulin 2.5 g/dL (1.7-4.1); Glucose 115 mg/dL (80-110); HEMOLYSIS < 15 (0-50); Potassium 4.5 mmol/L (3.4-5.1); Sodium 139 mmol/L (137-145); Total Protein 6.8 g/dL (6.3-8.2)
[2023-03-22 14:49] LABS: INR 1.4 (0.9-1.3); Prothrombin Time 16.4 SECONDS (10.1-12.7)
[2023-03-22 14:56] LABS: NT-proBNP (BNP-Adult 18+) 12 pg/mL (<125); Troponin I < 0.012 ng/mL (0.01-0.034)
[2023-03-22 15:40] LABS: NT-proBNP (BNP-Adult 18+) 12 pg/mL (<125)
[2023-03-22 15:54] LABS: D Dimer < 215 ng/ml (<500)
[2023-03-22 16:52] LABS: Troponin I < 0.012 ng/mL (0.01-0.034)
--- NOTE | 2023-03-22 19:20 | DI.CT.S_ITS ---
PROCEDURE: CT ANGIO CHEST PE PROTOCOL INDICATIONS: Dyspnea TECHNIQUE: After the administration of intravenous contrast, 2 mm thick sections acquired from the pulmonary apices to the posterior costophrenic angles. 3-dimensional maximum intensity projection (MIP) coronal and sagittal reformats were then acquired through the thorax. For radiation dose reduction, the following was used: automated exposure control, adjustment of mA and/or kV according to patient size. COMPARISON: [facility], CT, CT ABDOMEN PELVIS W CON, 06/15/2020, 0:23. FINDINGS: Image quality: Excellent. Pulmonary arteries: Pulmonary arteries are normal in size, and demonstrate no intraluminal filling defects to suggest central pulmonary embolism. Lower Neck: No lymphadenopathy by size criteria. Thyroid: Visualized thyroid demonstrates no discrete nodules. Axillae: No lymphadenopathy by size criteria. Chest Wall: Unremarkable. Bones: Visualized osseous structures demonstrate no suspicious lesions. Lungs and Airways: No acute consolidation. There is mild dependent atelectasis. No suspicious pulmonary nodules. The trachea and central airways are patent. Pleura: No pneumothorax or pleural effusions. Heart: Heart size is normal. No pericardial effusion. Thoracic Vessels: The thoracic aorta is normal in size. Mediastinum and Genia: No lymphadenopathy by size criteria. Esophagus: No wall thickening. There is a small hiatal hernia. Abdomen: Visualized upper abdomen redemonstrates a few small hypodense foci in the liver which are too small to characterize but likely represent cysts. IMPRESSION: 1. No evidence of pulmonary embolism. 2. No acute airspace consolidation. Dictated by: Tomas Sandoval M.D. on 03/22/2023 at 20:11 Approved by: Tomas Sandoval M.D. on 03/22/2023 at 20:15
[2023-03-22] MEDS: SODIUM CHLORIDE 0.9% 500 ML 1000 ML IV (19:32)
--- NOTE | 2023-03-22 19:33 | ED.SOB ---
HPI - SOB/Dyspnea General Chief Complaint: Shortness of Breath/Dyspnea Stated Complaint: SOB for three weeks, worsening Time Seen by Provider: 03/22/23 15:10 Source: patient Mode of arrival: Ambulatory Limitations: no limitations History of Present Illness HPI Narrative: Patient complains shortness of breath and exertional chest discomfort with shortness breast as well. Patient has history of pulmonary embolism and is on Eliquis. Diagnosed in 2019 in [place]. Patient states his providers thought he had a DVT in his legs, he was diagnosed with PFO, which lead to pulmonary embolism bilaterally and severe shortness of breath. Patient states this feels the same in the early stages. Denies any calf pain or swelling. No nausea no sweating no diaphoresis no abdominal pain or back pain Related Data Home Medications Medication Instructions Recorded Confirmed apixaban 5 mg tablet (Eliquis) 5 mg PO BID 12/19/19 03/23/23 atorvastatin 40 mg tablet 40 mg PO DAILY 12/19/19 03/23/23 cholecalciferol (vitamin D3) 125 5,000 unit PO BID 12/19/19 03/23/23 mcg (5,000 unit) tablet (Vitamin D3) esomeprazole magnesium 40 mg 40 mg PO BID 12/19/19 03/23/23 capsule,delayed release fluticasone propionate 50 1 spray intranasal DIRECTED 12/19/19 03/23/23 mcg/actuation nasal spray,suspension losartan 50 mg tablet 50 mg PO DAILY 12/19/19 03/23/23 olopatadine 0.1 % eye drops 1 drp EYE-BOTH DIRECTED PRN 12/19/19 03/23/23 (Patanol) Allergies carvedilol 25 mg tablet 25 mg PO BID 11/30/20 03/23/23 fexofenadine 180 mg tablet 180 mg PO BID PRN Allergies 11/30/20 03/23/23 levothyroxine 175 mcg tablet 175 mcg PO DAILY 11/30/20 03/23/23 (Synthroid) tamsulosin 0.4 mg capsule 0.4 mg PO BEDTIME 11/30/20 03/23/23 bupropion HCl 300 mg 24 hr tablet, 300 mg PO QAM 03/23/23 03/23/23 extended release lamotrigine 100 mg tablet 100 mg PO BID 03/23/23 03/23/23 meloxicam 15 mg tablet 15 mg PO BEDTIME 03/23/23 03/23/23 prazosin 1 mg capsule 1 mg PO BEDTIME 03/23/23 03/23/23 Previous Rx's Medication Instructions Recorded acetaminophen 325 mg tablet 650 mg PO TID #60 tabs 12/03/20 hydroxyzine pamoate 25 mg capsule 25 mg PO Q4HR PRN itching/nausea 12/03/20 #30 caps polyethylene glycol 3350 17 gram 17 gm PO DAILY PRN Constipation 12/03/20 oral powder packet #20 ea walker #1 ea 12/03/20 Allergies Allergy/AdvReac Type Severity Reaction Status Date / Time tetanus toxoid, adsorbed Allergy Mild Arm Verified 03/22/23 14:08 swelling, bruise, scabbed Review of Systems Review of Systems Narrative: GENERAL: negative chills, fatigue, malaise, fever, sweats. HEENT: negative sinus pain, ear pain, sore throat RESPIRATORY: Positive dyspnea, negative hemoptysis negative cough CARDIOVASCULAR: Positive chest pain, negative palpitations GASTROINTESTINAL: negative nausea, vomiting, abdominal pain : negative dysuria, frequency, hematuria MUSCULOSKELETAL: negative muscle or bony pain SKIN: negative rash, skin lesions NEUROLOGIC: negative weakness, numbness ROS Unobtainable: All systems reviewed & are unremarkable except as noted in HPI and below Patient History Medical History Former smoker GERD (gastroesophageal reflux disease) Hyperlipidemia Hypertension WARD (obstructive sleep apnea) PFO (patent foramen ovale) Primary osteoarthritis of right knee Pulmonary emboli (~08/05/19) Stroke (~08/05/18) Unilateral post-traumatic osteoarthritis, right knee Surgical History History of Jeniffer fundoplication Social History household members: spouse and children Smoking Status: Former smoker alcohol intake: former Smoking Status: Former smoker tobacco type: cigarettes alcohol intake frequency: 3 or more drinks per day Substance Use Type: does not use Exam Narrative Exam Narrative: GENERAL: in no distress, not toxic not dyspneic HEAD: Normocephalic. EYES: Pupils equal round ENT: Mucous membranes moist. NECK: Trachea midline. CARDIOVASCULAR: Regular rate and rhythm without murmurs RESPIRATORY: Clear to auscultation. Breath sounds equal bilaterally. No wheezes, rales, or rhonchi. GASTROINTESTINAL: Abdomen soft, non-tender EXTREMITIES: No gross deformities. BACK: No flank tenderness. NEURO: AOx4. SKIN: Warm and dry PSYCH: Not anxious, is cooperative Initial Vital Signs Initial Vital Signs: Vital Signs Temperature 98.2 F 03/22/23 14:06 Pulse Rate 66 03/22/23 14:06 Respiratory Rate 15 03/22/23 14:06 Blood Pressure 157/95 H 03/22/23 14:06 Pulse Oximetry 97 03/22/23 14:06 Oxygen Delivery Method Room Air 03/22/23 14:06 Course Orders Ordered: Discontinued Medications Acetaminophen (Acetaminophen 325 Mg Tablet) 650 mg PO Q6H PRN PRN Reason: Fever/Mild Pain (1-3) Last Admin: 03/23/23 09:31 Dose: 650 mg Documented By: ROMAN Apixaban (Apixaban 5 Mg Tablet) 5 mg PO BID [facility] Last Admin: 03/23/23 09:34 Dose: Not Given Documented By: Admin: 03/23/23 00:33 Dose: 5 mg Documented By: DANNY Aspirin (Aspirin 81 Mg Chew Tab) 324 mg PO NOW ONE Stop: 03/22/23 20:48 Last Admin: 03/22/23 21:01 Dose: 324 mg Documented By: JAMES Aspirin (Aspirin Ec 81 Mg Tablet) 81 mg PO DAILY [facility] Last Admin: 03/23/23 09:30 Dose: 81 mg Documented By: ROMAN Atorvastatin Calcium (Atorvastatin 20 Mg Tablet) 40 mg PO DAILY [facility] Last Admin: 03/23/23 09:34 Dose: Not Given Documented By: ROMAN Bupropion HCl (Bupropion Xl 150 Mg Tab) 300 mg PO DAILY [facility] Last Admin: 03/23/23 09:28 Dose: 300 mg Documented By: ROMAN Carvedilol (Carvedilol 12.5 Mg Tablet) 25 mg PO BID [facility] Last Admin: 03/23/23 09:34 Dose: Not Given Documented By: Admin: 03/23/23 00:33 Dose: 25 mg Documented By: DANNY Sodium Chloride (Normal Saline 0.9%) 500 mls @ 1,000 mls/hr IV BOLUS ONE Stop: 03/22/23 19:48 Last Infusion: 03/22/23 20:59 Dose: 0 mls/hr Documented By: Admin: 03/22/23 19:32 Dose: 1,000 mls/hr Documented By: JAMES Lamotrigine (Lamotrigine 100 Mg Tablet) 100 mg PO BID [facility] Last Admin: 03/23/23 09:30 Dose: 100 mg Documented By: ROMAN Levothyroxine Sodium (Levothyroxine 50 Mcg Tablet) 175 mcg PO QACBREAK [facility] Last Admin: 03/23/23 06:35 Dose: 175 mcg Documented By: DANNY Losartan Potassium (Losartan 50 Mg Tablet) 50 mg PO DAILY [facility] Last Admin: 03/23/23 09:29 Dose: 50 mg Documented By: ROMAN Naloxone HCl (Naloxone 0.4 Mg/Ml Vial) 0.2 mg IV Q2MIN PRN PRN Reason: Opiate Reversal Ondansetron HCl (Ondansetron 4 Mg/2 Ml Inj) 4 mg IV Q8HR PRN PRN Reason: Nausea And Vomiting Pantoprazole Sodium (Pantoprazole Dr 40 Mg Tablet) 40 mg PO BID@0600,2100 [facility] Last Admin: 03/23/23 05:55 Dose: 40 mg Documented By: DANNY Sodium Chloride (Sodium Chloride 0.9% Flush) 10 ml IV PRN PRN PRN Reason: Flush Sodium Chloride (Sodium Chloride 0.9% Flush) 10 ml IV BID [facility] Last Admin: 03/23/23 09:30 Dose: 10 ml Documented By: ROMAN Tamsulosin HCl (Tamsulosin 0.4 Mg Capsule) 0.4 mg PO BEDTIME [facility] Vital Signs Vital signs: Vital Signs - 8 hr 03/22/23 14:06 03/22/23 15:03 03/22/23 15:05 Temperature 98.2 F Pulse Rate 66 56 L Respiratory Rate 15 13 Blood Pressure 157/95 H 136/87 Pulse Oximetry 97 98 Oxygen Delivery Method Room Air 03/22/23 15:05 03/22/23 15:30 03/22/23 16:00 Temperature Pulse Rate 56 L 52 L Respiratory Rate 19 10 L Blood Pressure 137/89 Pulse Oximetry 96 99 Oxygen Delivery Method 03/22/23 16:00 03/22/23 16:27 03/22/23 16:27 Temperature Pulse Rate 61 51 L Respiratory Rate 15 19 Blood Pressure 138/89 Pulse Oximetry 97 96 Oxygen Delivery Method 03/22/23 16:30 03/22/23 16:30 03/22/23 17:00 Temperature Pulse Rate 54 L Respiratory Rate 18 Blood Pressure 138/89 133/82 Pulse Oximetry 95 Oxygen Delivery Method 03/22/23 17:00 03/22/23 17:30 03/22/23 17:30 Temperature Pulse Rate 55 L 52 L Respiratory Rate 19 17 Blood Pressure 148/83 H Pulse Oximetry 98 95 Oxygen Delivery Method 03/22/23 18:03 03/22/23 18:30 03/22/23 19:00 Temperature Pulse Rate 55 L 65 58 L Respiratory Rate 20 24 18 Blood Pressure Pulse Oximetry 98 98 98 Oxygen Delivery Method MDM - SOB/Dyspnea Lab Data 03/23/23 07:28 03/23/23 07:28 Labs: Lab Results 03/22/23 03/22/23 03/22/23 Range/Units 14:25 14:25 14:25 WBC 4.6 (4.5-11.0) X10^3/uL RBC 4.87 (4.5-5.9) X10^6/uL Hgb 14.8 (13.5-17.5) g/dL Hct 44.2 (41-53) % MCV 90.7 (80-100) fL MCH 30.4 (26-34) PG MCHC 33.5 (30-36) % RDW 13.2 (11.6-14.8) % Plt Count 205 (150-400) X10^3/uL Neut % (Auto) 61.3 (50-75) % Lymph % (Auto) 29.4 (25-40) % Oliver % (Auto) 8.0 (3-14) % Eos % (Auto) 0.6 L (2-4) % Baso % (Auto) 0.7 (0-2) % Neut # (Auto) 2800 (1037-8468) /uL Lymph # (Auto) 1400 (5829-6816) /uL Oliver # (Auto) 400 (0-900) /uL Eos # (Auto) 0 (0-450) /uL Baso # (Auto) 0 (0-100) /uL PT 16.4 H (10.1-12.7) SECONDS INR 1.4 H (0.9-1.3) D-Dimer (<500) ng/ml Sodium 139 (137-145) mmol/L Potassium 4.5 (3.4-5.1) mmol/L Chloride 102 (98-107) mmol/L Carbon Dioxide 31 (22-32) mmol/L BUN 28 H (9-20) mg/dL Creatinine 1.25 (0.66-1.25) mg/dL Estimated GFR > 60 (>60) mL/min BUN/Creatinine Ratio 22.4 H (6-22) Glucose 115 H (80-110) mg/dL Lactate (0.7-2.1) mmol/L Calcium 9.6 (8.4-10.2) mg/dL Total Bilirubin 0.9 (0.2-1.3) mg/dL AST 26 (17-59) IU/L ALT 32 (<50) IU/L Alkaline Phosphatase 58 (38-126) U/L Troponin I < 0.012 (0.01-0.034) ng/mL NT-Pro-B Natriuret Pep 12 (<125) pg/mL Total Protein 6.8 (6.3-8.2) g/dL Albumin 4.3 (3.5-5.0) g/dL Globulin 2.5 (1.7-4.1) g/dL Albumin/Globulin Ratio 1.7 (1.0-2.8) 03/22/23 03/22/23 03/22/23 Range/Units 14:25 14:25 14:25 WBC (4.5-11.0) X10^3/uL RBC (4.5-5.9) X10^6/uL Hgb (13.5-17.5) g/dL Hct (41-53) % MCV (80-100) fL MCH (26-34) PG MCHC (30-36) % RDW (11.6-14.8) % Plt Count (150-400) X10^3/uL Neut % (Auto) (50-75) % Lymph % (Auto) (25-40) % Oliver % (Auto) (3-14) % Eos % (Auto) (2-4) % Baso % (Auto) (0-2) % Neut # (Auto) (7091-3735) /uL Lymph # (Auto) (9008-4510) /uL Oliver # (Auto) (0-900) /uL Eos # (Auto) (0-450) /uL Baso # (Auto) (0-100) /uL PT (10.1-12.7) SECONDS INR (0.9-1.3) D-Dimer < 215 (<500) ng/ml Sodium (137-145) mmol/L Potassium (3.4-5.1) mmol/L Chloride (98-107) mmol/L Carbon Dioxide (22-32) mmol/L BUN (9-20) mg/dL Creatinine (0.66-1.25) mg/dL Estimated GFR (>60) mL/min BUN/Creatinine Ratio (6-22) Glucose (80-110) mg/dL Lactate 0.6 L (0.7-2.1) mmol/L Calcium (8.4-10.2) mg/dL Total Bilirubin (0.2-1.3) mg/dL AST (17-59) IU/L ALT (<50) IU/L Alkaline Phosphatase (38-126) U/L Troponin I (0.01-0.034) ng/mL NT-Pro-B Natriuret Pep 12 (<125) pg/mL Total Protein (6.3-8.2) g/dL Albumin (3.5-5.0) g/dL Globulin (1.7-4.1) g/dL Albumin/Globulin Ratio (1.0-2.8) 05/18/23 Range/Units 16:23 WBC (4.5-11.0) X10^3/uL RBC (4.5-5.9) X10^6/uL Hgb (13.5-17.5) g/dL Hct (41-53) % MCV (80-100) fL MCH (26-34) PG MCHC (30-36) % RDW (11.6-14.8) % Plt Count (150-400) X10^3/uL Neut % (Auto) (50-75) % Lymph % (Auto) (25-40) % Oliver % (Auto) (3-14) % Eos % (Auto) (2-4) % Baso % (Auto) (0-2) % Neut # (Auto) (2338-8443) /uL Lymph # (Auto) (5042-4675) /uL Oliver # (Auto) (0-900) /uL Eos # (Auto) (0-450) /uL Baso # (Auto) (0-100) /uL PT (10.1-12.7) SECONDS INR (0.9-1.3) D-Dimer (<500) ng/ml Sodium (137-145) mmol/L Potassium (3.4-5.1) mmol/L Chloride (98-107) mmol/L Carbon Dioxide (22-32) mmol/L BUN (9-20) mg/dL Creatinine (0.66-1.25) mg/dL Estimated GFR (>60) mL/min BUN/Creatinine Ratio (6-22) Glucose (80-110) mg/dL Lactate (0.7-2.1) mmol/L Calcium (8.4-10.2) mg/dL Total Bilirubin (0.2-1.3) mg/dL AST (17-59) IU/L ALT (<50) IU/L Alkaline Phosphatase (38-126) U/L Troponin I < 0.012 (0.01-0.034) ng/mL NT-Pro-B Natriuret Pep (<125) pg/mL Total Protein (6.3-8.2) g/dL Albumin (3.5-5.0) g/dL Globulin (1.7-4.1) g/dL Albumin/Globulin Ratio (1.0-2.8) Urine Dip Bedside Urine Glucose Negative Bedside Urine Bilirubin - Negative Bedside Urine Ketone - Negative Urine Specific [place] 1.010 Bedside Urine Occult Blood - Negative Bedside Urine pH 7 Bedside Urine Protein - Negative Bedside Urine Urobilinogen - Negative Bedside Urine Nitrite - Negative Bedside Urine Leukocytes - Negative Esterase Imaging Data Chest x-ray: Radiologist's Impression: PROCEDURE:? XR CHEST 1V ? INDICATIONS:? Shortness of breath ? TECHNIQUE:? One view of the chest was acquired.? ? COMPARISON:? [facility], , CHEST 2 VIEW, 11/02/2014, 18:55. ? FINDINGS:? ? Surgical changes and devices:? None.? ? Lungs and pleura:? Lungs are clear.? No pleural effusions or pneumothorax.? ? Mediastinum:? Mediastinal contours appear normal.? Heart size is normal.? ? Bones and chest wall:? No suspicious bony lesions.? Overlying soft tissues appear unremarkable.? ? IMPRESSION:? No acute cardiopulmonary process. ? CT scan - chest: Radiologist's Impression: [address] [address] [address] Scan Report Signed Patient: Nadeem Fuller Jr MR#: [id number] : 1960 Acct:[id number] Age/Sex: 62 / M Date of Service: 03/22/23 Loc: ED Accession Number: [id number] ?? Procedure: CT angio chest PE protocol Ordering Provider: Timothy Leslie MD PROCEDURE:? CT ANGIO CHEST PE PROTOCOL ? INDICATIONS:? Dyspnea ? TECHNIQUE:? After the administration of intravenous contrast, 2 mm thick sections acquired from the pulmonary apices to the posterior costophrenic angles.? 3-dimensional maximum intensity projection (MIP) coronal and sagittal reformats were then acquired through the thorax.? For radiation dose reduction, the following was used:? automated exposure control, adjustment of mA and/or kV according to patient size.? ? COMPARISON:? [facility], CT, CT ABDOMEN PELVIS W CON, 06/15/2020, 0:23. ? FINDINGS:? Image quality:? Excellent.? ? Pulmonary arteries:? Pulmonary arteries are normal in size, and demonstrate no intraluminal filling defects to suggest central pulmonary embolism.? ? Lower Neck: No lymphadenopathy by size criteria. Thyroid:? Visualized thyroid demonstrates no discrete nodules. Axillae: No lymphadenopathy by size criteria. Chest Wall:? Unremarkable.? Bones: Visualized osseous structures demonstrate no suspicious lesions. ? Lungs and Airways:? No acute consolidation.? There is mild dependent atelectasis.? No suspicious pulmonary nodules. The trachea and central airways are patent. Pleura: No pneumothorax or pleural effusions.? ? Heart: Heart size is normal.? No pericardial effusion. Thoracic Vessels: The thoracic aorta is normal in size.? Mediastinum and Genia: No lymphadenopathy by size criteria. Esophagus: No wall thickening.? There is a small hiatal hernia. ? Abdomen:? Visualized upper abdomen redemonstrates a few small hypodense foci in the liver which are too small to characterize but likely represent cysts. ? IMPRESSION:? ? 1. No evidence of pulmonary embolism. ? 2. No acute airspace consolidation.? ? ? Dictated by: Tomas Sandoval M.D. on 03/22/2023 at 20:11 ? ? Approved by: Tomas Sandoval M.D. on 03/22/2023 at 20:15 ? MDM Narrative Medical decision making narrative: Patient complains shortness of breath and exertional chest discomfort with shortness breast as well. Patient has history of pulmonary embolism and is on Eliquis. Diagnosed in 2019 in [place]. Patient states his providers thought he had a DVT in his legs, he was diagnosed with PFO, which lead to pulmonary embolism bilaterally and severe shortness of breath. Patient states this feels the same in the early stages. Denies any calf pain or swelling. No nausea no sweating no diaphoresis no abdominal pain or back pain After history and exam CBC CMP troponin EKG D-dimer chest x-ray CT chest normal saline BNP MDM CC: Dyspnea/chest pain Complicating co-morbidities: Bilateral pulmonary embolism Data collected from: Patient Medical records reviewed: No previous visits here for this complaint Differential considered: Includes but not limited to pulmonary embolism stable angina unstable angina STEMI non-STEMI pneumonia CHF Exam documented above, pertinent findings include: Normal lung sounds speak full sentences Lab Test results independently reviewed as above. Pertinent findings: White cell count 4.6 hemoglobin 14.8 hematocrit 44 INR 1.4 sodium 139 potassium 4.5 GFR greater than 60 troponin less than 0.012 x 2 BNP 12 D-dimer less than 215 Independently reviewed EKG as above 1st EKG sinus bradycardia rate [address] elevation or depression. Second EKG normal sinus rhythm normal EKG rate [address] elevation or depression Imaging studies independently reviewed: Chest x-ray no acute process CT chest no acute process Consultations: 9:47 p.m.. Spoke with Hospitalist, dr abarca, he will see patient to evaluate for admission Treatments: Aspirin Re-evaluations: Reviewed results with patient. No PE. He does agree for balance workup for his dyspnea and chest pain including stress test and echocardiogram. Discussion: Appropriate for admission for balance workup for dyspnea and chest pain. Reviewed with patient and at this time have ruled out PE. Needs echocardiogram and stress test. Diagnosis: Dyspnea Discharge Plan Departure Patient Disposition: Admitted as Observation Clinical Impression: Dyspnea Admit Date/Time: 03/22/23 22:54 Admit Provider: Santiago Abarca
[2023-03-22] MEDS: ASPIRIN 81 MG CHEW TAB 324 MG PO (21:01)
[2023-03-22 23:37] LABS: COVID19 -Nasal RAPID Negative (Negative)
--- NOTE | 2023-03-22 23:43 | DI.NM.S_ITS ---
PROCEDURE: NM EXERCISE TREADMILL NON NUC COMPARISON: None INDICATIONS: Chest pain FINDINGS: Rest ECG sinus rhythm. Yoandy protocol 6:29, maximum heart rate 140 bpm (88% peak predicted) maximum blood pressure 200/90, 7.0 METS, SARTHAK +23%. Stress ECG sinus tachycardia, no ST segment changes or arrhythmias. The patient did not complain of exercise-induced chest pain. IMPRESSION: Low risk study. No evidence of exercise-induced ischemia or arrhythmia. Normal hemodynamic response. Reduced exercise capacity. Dictated by: Renetta Steiner D.O. on 03/23/2023 at 15:47 Approved by: Renetta Steiner D.O. on 03/23/2023 at 15:49
--- NOTE | 2023-03-22 23:43 | DI.ECHO.S_ITS ---
[place]---------+ [facility] +---------+ : : [address] : : : : [id number] : : : : Phone: [phone] Echocardiogram Report + + :Name: MARIANELA POTTER JR Study Date: 03/23/2023 Height: 76 in : [facility] ReadingLocation: Weight: 244 lb : : Gender: Male BSA: 2.4 m2 : :: 1960 Age: 62 yrs BP: 106/66 mmHg: :Reason For Study: SHORTNESS OF BREATH : :Ordering Physician: CATARINA, : :DAVID Performed By: Britni Horton : :Referring: DAVID ELMORE : + + Interpretation Summary The left ventricle is normal in size and wall thickness. Left ventricular systolic function appears normal without focal wall motion abnormalities. The ejection fraction is estimated to be 55-60%. Diastolic parameters suggest probable normal left ventricular diastolic function and normal filling pressures. The right ventricle is normal in size and function. The left atrial size is normal. Right atrial size is normal. Injection of contrast documented an interatrial shunt. There is no significant valvular heart disease. The aortic root is normal size. Procedure: A two-dimensional transthoracic echocardiogram with color flow and Doppler was performed. The study quality was technically adequate. There is no prior echocardiogram noted for this patient. A saline contrast injection was performed to assess for cardiac shunting. The injection was performed through an intravenous line in the left arm. The patient was in sinus bradycardia with heart rates between 52-68 bpm during the exam. Left Ventricle: The left ventricle is normal in size and wall thickness. Left ventricular systolic function appears normal without focal wall motion abnormalities. The ejection fraction is estimated to be 55-60%. Diastolic parameters suggest probable normal left ventricular diastolic function and normal filling pressures. Right Ventricle: The right ventricle is normal in size and function. Atria: The left atrial size is normal. Right atrial size is normal. Injection of contrast documented an interatrial shunt. Mitral Valve: The mitral valve is normal in structure and function. There is trace mitral regurgitation. Aortic Valve: The aortic valve is trileaflet. The aortic valve opens well. There is no aortic valve stenosis. No aortic regurgitation is present. Tricuspid Valve: The tricuspid valve is normal in structure and function. There is mild tricuspid regurgitation. Pulmonic Valve: The pulmonic valve leaflets are thin and pliable; valve motion is normal. There is no pulmonic valvular regurgitation. There is no significant valvular heart disease. Great Vessels: The aortic root is normal size. The dimensions of the ascending aorta are normal. The IVC is of normal diameter and collapses greater than 50% with a sniff. This suggests a low right atrial pressure of 3 mm Hg. Pericardium/ Pleura There is no pericardial effusion. There is no pleural effusion. MMode/2D Measurements & Calculations LVIDd: 5.3 cm LVOT diam: 2.2 cm LVIDs: 3.4 cm Ao root diam: 3.4 cm FS: 37.3 % asc Aorta Diam: 3.7 cm EPSS: 0.88 cm Ao Arch Diam (Prox Trans): 2.7 cm IVSd: 0.91 cm LVPWd: 0.75 cm LV kowalski. diameter/BSA (cm/m^2): 2.2 LV sys. diameter/BSA (cm/m^2): 1.4 LA A2 area: 24.8 cm2 RA long axis: 5.0 cm LA A4 area: 16.4 cm2 RA area: 17.4 cm2 LA length (vol): 5.1 cm RA vol: 50.9 ml LA vol: 67.4 ml RA : 21.1 ml/m2 LA vol index: 28.0 ml/m2 IVC diam: 1.9 cm RVD1 (basal): 3.8 cm RVD2 (mid): 3.3 cm TAPSE: 2.4 cm Doppler Measurements & Calculations Ao V2 max: 87.1 cm/sec LVOT Max Michael: 79.0 cm/sec Ao V2 mean: 69.2 cm/sec LV V1 max P.5 mmHg Ao max P.0 mmHg LV V1 VTI: 19.0 cm Ao mean P.0 mmHg SARA(I,D): 3.7 cm2 Ao V2 VTI: 19.7 cm SARA(V,D): 3.5 cm2 sev ratio: 0.96 SARA indexed to BSA (cm^2/m^2): 1.5 MV E max michael: 51.9 cm/sec TR max michael: 211.7 cm/sec MV A max michael: 45.5 cm/sec TR max P.0 mmHg MV E/A: 1.1 PA V2 max: 69.1 cm/sec Med Peak E' Michael: 8.3 cm/sec PA V2 mean: 50.9 cm/sec E/E' med: 6.3 PA mean P.1 mmHg Lat Peak E' Michael: 8.8 cm/sec PA pr(Accel): 24.2 mmHg E/E' lat: 5.9 E/e' average: 6.1 MV dec time: 0.32 sec SV(LVOT): 73.6 ml Reading Physician:08:40 AM
[2023-03-23 00:33] VITALS: BP 128/78; PULSE 66
[2023-03-23] MEDS: carvediloL 12.5 MG TABLET 25 MG PO (00:33)
[2023-03-23] MEDS: APIXABAN 5 MG TABLET PO (00:33)
--- NOTE | 2023-03-23 02:15 | PC.NURSE ---
2325 Admitted to room 204 from ER via wheelchair. Oriented to his room, call light & bed, TV controls. Denies any CP & no C/O SOB & dyspnea, independent with his mobility. Denies any recent fall @ home for the past 3 months. C/O being hungry provided with sandwiches & water, Will cont. POC & monitor.
[2023-03-23 04:08] VITALS: BP 106/66; PULSE 58; RESP 18; TEMP 36.6; O2SAT 95
--- NOTE | 2023-03-23 04:49 | P.HP_ITS ---
History of Present Illness History of Present Illness Date Patient Seen: 03/22/23 Time Patient Seen: 23:00 Chief complaint: SOB Narrative: Mr. Fuller is a 62M with PMH PE, CVA who presents to the hospital with chest pain and shorntess of breath. He notes he primarily has developed shortness of breath over the last few weeks. He has also had substernal chest pain. This is similar to the symptoms he has had in the past when he was diagnosed with a PE. He has had no recent stress testing. He has not noted any weight gain. His shortness of breath is somewhat worse with exertion. He has not had any productive cough. In the ED workup was done, vitals notable for afebrile, heart rate in the 60s, blood pressure 150s/90s. Sats 97% on room air. Labs reviewed by me and notable for WBC 4.6, hgb 14.8, plts 205. Na 139, k 4.5, creatinine 1.25. INR 1.4. Trop negative x2. BNP 12. Lactate normal. Chest xray reviewed by me and negative for any acute process. CTA chest negative for PE. He was admitted for further evaluation of his chest pain and shortness of breath. [facility] Medical History Former smoker GERD (gastroesophageal reflux disease) Hyperlipidemia Hypertension WARD (obstructive sleep apnea) PFO (patent foramen ovale) Primary osteoarthritis of right knee Pulmonary emboli (~08/05/19) Stroke (~08/05/18) Unilateral post-traumatic osteoarthritis, right knee Surgical History History of Jeniffer fundoplication Social History household members: spouse and children Smoking Status: Former smoker alcohol intake: former Meds Home Medications and Allergies Home Medications Medication Instructions Recorded Confirmed Type apixaban 5 mg tablet (Eliquis) 5 mg PO BID 12/19/19 03/23/23 History atorvastatin 40 mg tablet 40 mg PO DAILY 12/19/19 03/23/23 History cholecalciferol (vitamin D3) 125 5,000 unit PO BID 12/19/19 03/23/23 History mcg (5,000 unit) tablet (Vitamin D3) esomeprazole magnesium 40 mg 40 mg PO BID 12/19/19 03/23/23 History capsule,delayed release fluticasone propionate 50 1 spray intranasal DIRECTED 12/19/19 03/23/23 Hist ory mcg/actuation nasal spray,suspension losartan 50 mg tablet 50 mg PO DAILY 12/19/19 03/23/23 History olopatadine 0.1 % eye drops 1 drp EYE-BOTH DIRECTED PRN 12/19/19 03/23/23 History (Patanol) Allergies carvedilol 25 mg tablet 25 mg PO BID 11/30/20 03/23/23 History fexofenadine 180 mg tablet 180 mg PO BID PRN Allergies 11/30/20 03/23/23 History levothyroxine 175 mcg tablet 175 mcg PO DAILY 11/30/20 03/23/23 History (Synthroid) tamsulosin 0.4 mg capsule 0.4 mg PO BEDTIME 11/30/20 03/23/23 History acetaminophen 325 mg tablet 650 mg PO TID #60 tabs 12/03/20 03/23/23 Rx hydroxyzine pamoate 25 mg capsule 25 mg PO Q4HR PRN itching/nausea 12/03/20 03/23/23 Rx #30 caps polyethylene glycol 3350 17 gram 17 gm PO DAILY PRN Constipation 12/03/20 03/23/23 Rx oral powder packet #20 ea walker #1 ea 12/03/20 03/23/23 Rx bupropion HCl 300 mg 24 hr tablet, 300 mg PO QAM 03/23/23 03/23/23 History extended release lamotrigine 100 mg tablet 100 mg PO BID 03/23/23 03/23/23 History meloxicam 15 mg tablet 15 mg PO BEDTIME 03/23/23 03/23/23 History prazosin 1 mg capsule 1 mg PO BEDTIME 03/23/23 03/23/23 History Allergies Allergy/AdvReac Type Severity Reaction Status Date / Time tetanus toxoid, adsorbed Allergy Mild Arm Verified 03/22/23 14:08 swelling, bruise, scabbed Review of Systems Review of Systems Narrative: 14 systems reviewed and negative aside from what is noted in HPI Exam Vital Signs (past 8 hours): - 03/22/23 21:00 03/22/23 21:00 03/22/23 21:30 Temperature Pulse Rate 52 L Respiratory Rate 13 Blood Pressure 131/83 141/86 H Pulse Oximetry 97 Oxygen Flow Rate 03/22/23 21:30 03/22/23 22:00 03/22/23 22:00 Temperature Pulse Rate 49 L 55 L Respiratory Rate 14 15 Blood Pressure 136/81 Pulse Oximetry 98 94 Oxygen Flow Rate 03/22/23 22:30 03/22/23 23:00 03/22/23 23:25 Temperature 97.2 F L Pulse Rate 56 L 53 L 54 L Respiratory Rate 15 14 18 Blood Pressure 131/82 Pulse Oximetry 98 97 Oxygen Flow Rate 0 03/23/23 00:33 03/23/23 04:08 Temperature 97.9 F Pulse Rate 66 58 L Respiratory Rate 18 Blood Pressure 128/78 106/66 Pulse Oximetry 95 Oxygen Flow Rate 0 Oxygen Delivery Method Room Air Oxygen Flow Rate 0 Narrative Exam Narrative: GEN: no acute distress HEENT: moist mucous membranes, PERRL CV: bradycardia, no murmurs PULM: clear bilaterally ABD: soft, nontender, nondistended EXT: warm and well perfused with no edema Objective Labs 03/22/23 14:25 03/22/23 14:25 Labs: Laboratory Results - last 24 hr 03/22/23 03/22/23 03/22/23 14:25 14:25 14:25 WBC 4.6 RBC 4.87 Hgb 14.8 Hct 44.2 MCV 90.7 MCH 30.4 MCHC 33.5 RDW 13.2 Plt Count 205 Neut % (Auto) 61.3 Lymph % (Auto) 29.4 [place] % (Auto) 8.0 Eos % (Auto) 0.6 L Baso % (Auto) 0.7 Neut # (Auto) 2800 Lymph # (Auto) 1400 [place] # (Auto) 400 Eos # (Auto) 0 Baso # (Auto) 0 PT 16.4 H INR 1.4 H D-Dimer Sodium 139 Potassium 4.5 Chloride 102 Carbon Dioxide 31 BUN 28 H Creatinine 1.25 Estimated GFR > 60 BUN/Creatinine Ratio 22.4 H Glucose 115 H Lactate Calcium 9.6 Total Bilirubin 0.9 AST 26 ALT 32 Alkaline Phosphatase 58 Troponin I < 0.012 NT-Pro-B Natriuret Pep 12 Total Protein 6.8 Albumin 4.3 Globulin 2.5 Albumin/Globulin Ratio 1.7 SARS-CoV-2 (PCR) 03/22/23 03/22/23 03/22/23 14:25 14:25 14:25 WBC RBC Hgb Hct MCV MCH MCHC RDW Plt Count Neut % (Auto) Lymph % (Auto) [place] % (Auto) Eos % (Auto) Baso % (Auto) Neut # (Auto) Lymph # (Auto) [place] # (Auto) Eos # (Auto) Baso # (Auto) PT INR D-Dimer < 215 Sodium Potassium Chloride Carbon Dioxide BUN Creatinine Estimated GFR BUN/Creatinine Ratio Glucose Lactate 0.6 L Calcium Total Bilirubin AST ALT Alkaline Phosphatase Troponin I NT-Pro-B Natriuret Pep 12 Total Protein Albumin Globulin Albumin/Globulin Ratio SARS-CoV-2 (PCR) 03/22/23 03/22/23 16:23 23:15 WBC RBC Hgb Hct MCV MCH MCHC RDW Plt Count Neut % (Auto) Lymph % (Auto) [place] % (Auto) Eos % (Auto) Baso % (Auto) Neut # (Auto) Lymph # (Auto) [place] # (Auto) Eos # (Auto) Baso # (Auto) PT INR D-Dimer Sodium Potassium Chloride Carbon Dioxide BUN Creatinine Estimated GFR BUN/Creatinine Ratio Glucose Lactate Calcium Total Bilirubin AST ALT Alkaline Phosphatase Troponin I < 0.012 NT-Pro-B Natriuret Pep Total Protein Albumin Globulin Albumin/Globulin Ratio SARS-CoV-2 (PCR) Negative Assessment & Plan Assessment & Plan narrative: 1. Chest pain and shortness of breath -etiology not clear -workup so far negative for infection, PE, negative for ACS -BNP normal and no volume overload, not CHF -will obs and plan for echo to eval for cardiomyopathy, stress test to eval for abnormality -ordered for aspirin, continue statin 2. History of PE -continue eliquis 3. Hypertension -continue coreg, losartan 4. Hypothyoridism -continue synthroid 5. GERD -continue PPI 6. BPH -continue flomax I have discussed plan and obtained history from patient. I have discussed plan of care with ED physician and bedside nurse. I have reviewed labs, imaging CODE: Full Proxy: Yessica Fuller, spouse Quality VTE Deep Vein Thrombosis/Pulmonary Embolism Present on Admission: No MIPS - Meds 'Current medications' to include all prescriptions, bnap-ohs-hipczty products, herbals, cannabis/cannabidiol products, and vitamin/mineral/dietary (nutritional) supplements. I have utilized all available resources to obtain, update, or review the patient?s current medications. [If Yes, STOP here]: Yes
[2023-03-23] MEDS: PANTOPRAZOLE DR 40 MG TABLET PO (05:55)
[2023-03-23] MEDS: LEVOTHYROXINE 50 MCG TABLET 175 MCG PO (06:35)
[2023-03-23 07:00] VITALS: O2SAT 97
[2023-03-23 07:54] LABS: Add Manual Diff / Slide Review NO; Basophils Absolute Auto 0 /uL (0-100); Basophils Percent Auto 0.6 % (0-2); Eosinophils Absolute Auto 100 /uL (0-450); Eosinophils Percent Auto 1.2 % (2-4); Hematocrit 41.7 % (41-53); Hemoglobin 14.4 g/dL (13.5-17.5); Lymphocytes Absolute Auto 1500 /uL (1100-4500); Lymphocytes Percent Auto 32.6 % (25-40); Mean Corpuscular HGB Conc 34.5 % (30-36); Mean Corpuscular Hemoglobin 31.4 PG (26-34); Mean Corpuscular Volume 90.9 fL (80-100); Monocytes Absolute Auto 500 /uL (0-900); Neutrophils Absolute Auto 2600 /uL (1500-7000); Neutrophils Percent Auto 54.6 % (50-75); Platelet Count 182 X10^3/uL (150-400); Red Blood Cell Count 4.59 X10^6/uL (4.5-5.9); Red Cell Distribution Width 13.3 % (11.6-14.8); White Blood Cell Count 4.7 X10^3/uL (4.5-11.0)
[2023-03-23 08:00] VITALS: BP 119/74; PULSE 61; RESP 17; TEMP 36.1; O2SAT 95
[2023-03-23 08:11] LABS: BUN Creatinine Ratio 22.5 (6-22); Blood Urea Nitrogen 25 mg/dL (9-20); Calcium 8.5 mg/dL (8.4-10.2); Carbon Dioxide 31 mmol/L (22-32); Chloride 103 mmol/L (98-107); Estimated Glomerular Filt Rate > 60 mL/min (>60); Glucose 105 mg/dL (80-110); HEMOLYSIS 18 (0-50); Potassium 4.2 mmol/L (3.4-5.1); Sodium 138 mmol/L (137-145)
[2023-03-23 08:16] LABS: Troponin I < 0.012 ng/mL (0.01-0.034)
[2023-03-23] MEDS: buPROPion XL 150 MG TAB 300 MG PO (09:28)
[2023-03-23] MEDS: LOSARTAN 50 MG TABLET PO (09:29)
[2023-03-23] MEDS: SODIUM CHLORIDE 0.9% FLUSH 10 ML IV (09:30)
[2023-03-23] MEDS: ASPIRIN EC 81 MG TABLET PO (09:30)
[2023-03-23] MEDS: lamoTRIgine 100 MG TABLET PO (09:30)
[2023-03-23] MEDS: ACETAMINOPHEN 325 MG TABLET 650 MG PO (09:31)
[2023-03-23 12:00] VITALS: BP 123/76; PULSE 61; RESP 17; TEMP 36.2; O2SAT 97
--- NOTE | 2023-03-23 15:42 | CM.DANOTE ---
Patient is a 62 yo male who was admitted on 03/22/23 for SOB. Pt has [employer] for insurance and his PCP is Morales Garza. EMR was reviewed. Per MD, pt with hx of CVA and admitted for SOB and chest pain r/o. Pt had Echo and stress test today and awaiting results to determine if pt medically stable to d/c home tonight with outpt f/u. No therapy needs yet at this time. Pt resides in [place] with his spouse and is independent and active at baseline and does not use DME for ambulation. Pt has no hx of admissions at [facility]. No bedside assessment completed at this time due to triage needs and no barriers to d/c identified at this time. Plan: SW to follow for possible d/c home tonight pending Echo and Stress test results and any further identified discharge planning needs. KALYN Rivera Discharge Planning/Care Management Advanced directive, confirm from FAMILY Start: 03/22/23 23:42 Freq: Q24H Status: Active Protocol: Document 03/22/23 23:42 MP (Rec: 03/22/23 23:42 MP [id number]) Advance Directive, confirm on record Time 23:42 Person contacted pt. Copy received No
--- NOTE | 2023-03-23 15:58 | P.DS_ITS ---
History of Present Illness History of Present Illness Date Patient Seen: 03/23/23 Time Patient Seen: 15:58 Chief complaint: SOB Narrative: Mr. Fuller is a 62M with PMH PE, CVA who presents to the hospital with chest pain and shorntess of breath. He notes he primarily has developed shortness of breath over the last few weeks. He has also had substernal chest pain. This is similar to the symptoms he has had in the past when he was diagnosed with a PE. He has had no recent stress testing. He has not noted any weight gain. His shortness of breath is somewhat worse with exertion. He has not had any productive cough. In the ED workup was done, vitals notable for afebrile, heart rate in the 60s, blood pressure 150s/90s. Sats 97% on room air. Labs reviewed by me and notable for WBC 4.6, hgb 14.8, plts 205. Na 139, k 4.5, creatinine 1.25. INR 1.4. Trop negative x2. BNP 12. Lactate normal. Chest xray reviewed by me and negative for any acute process. CTA chest negative for PE. He was admitted for further evaluation of his chest pain and shortness of breath. Discharge Providers Provider Date of admission: 03/22/23 22:54 Discharge Date: 03/23/23 Primary care physician: Morales Garza MD Discharge provider: Neri Rg DO Summary Hospital Course Discharge Diagnosis: 1. Chest pain and shortness of breath 2. History of PE 3. Hypertension 4. Hypothyoridism 5. GERD 6. BPH Hospital Course: This is a 62-year-old male with a past medical history of PE, hypertension, hypothyroidism who was admitted for further evaluation and cardiac risk stratification of chest pain and shortness of breath. He underwent EKG testing which was deemed low risk, and CT angiogram of his chest revealed no pulmonary embolism. Further evaluation with pulmonary function testing as an outpatient is recommended with his primary care provider. No changes are recommended to his home medications at the time of discharge. Time Spent with Patient Time spent: Less than 30 minutes Exam Vital Signs (past 8 hours): - 03/23/23 08:00 03/23/23 12:00 Temperature 97.0 F L 97.1 F L Pulse Rate 61 61 Respiratory Rate 17 17 Blood Pressure 119/74 123/76 Pulse Oximetry 95 97 Oxygen Flow Rate 0 0 Oxygen Delivery Method Room Air Oxygen Flow Rate 0 Narrative Exam Narrative: GEN: no acute distress EXT: warm and well perfused with no edema Objective Labs 03/23/23 07:28 03/23/23 07:28 Labs: Laboratory Results - last 24 hr 03/22/23 03/22/23 03/23/23 16:23 23:15 07:28 WBC 4.7 RBC 4.59 Hgb 14.4 Hct 41.7 MCV 90.9 MCH 31.4 MCHC 34.5 RDW 13.3 Plt Count 182 Neut % (Auto) 54.6 Lymph % (Auto) 32.6 [place] % (Auto) 11.0 Eos % (Auto) 1.2 L Baso % (Auto) 0.6 Neut # (Auto) 2600 Lymph # (Auto) 1500 [place] # (Auto) 500 Eos # (Auto) 100 Baso # (Auto) 0 Sodium Potassium Chloride Carbon Dioxide BUN Creatinine Estimated GFR BUN/Creatinine Ratio Glucose Calcium Troponin I < 0.012 SARS-CoV-2 (PCR) Negative 03/23/23 03/23/23 07:28 07:28 WBC RBC Hgb Hct MCV MCH MCHC RDW Plt Count Neut % (Auto) Lymph % (Auto) [place] % (Auto) Eos % (Auto) Baso % (Auto) Neut # (Auto) Lymph # (Auto) [place] # (Auto) Eos # (Auto) Baso # (Auto) Sodium 138 Potassium 4.2 Chloride 103 Carbon Dioxide 31 BUN 25 H Creatinine 1.11 Estimated GFR > 60 BUN/Creatinine Ratio 22.5 H Glucose 105 Calcium 8.5 Troponin I < 0.012 SARS-CoV-2 (PCR) [facility] Medical History Former smoker GERD (gastroesophageal reflux disease) Hyperlipidemia Hypertension WARD (obstructive sleep apnea) PFO (patent foramen ovale) Primary osteoarthritis of right knee Pulmonary emboli (~08/05/19) Stroke (~08/05/18) Unilateral post-traumatic osteoarthritis, right knee Surgical History History of Jeniffer fundoplication Social History household members: spouse and children Smoking Status: Former smoker alcohol intake: former Discharge Plan Discharge Plan Patient Disposition: Home Provider Discharge Comment: You were admitted to the hospital with shortness of breath. Stress testing was unremarkable, as was your echocardiogram (ultrasound of your heart). Please follow up with your PCP for further evaluation, including possible pulmonary function testing for further evaluation. Discharge orders & Medications Prescriptions: Continued atorvastatin 40 mg tablet 40 mg PO DAILY esomeprazole magnesium 40 mg capsule,delayed release(DR/EC) 40 mg PO BID fluticasone propionate 50 mcg/actuation spray,suspension 1 spray INTRANASAL DIRECTED Eliquis 5 mg tablet 5 mg PO BID losartan 50 mg tablet 50 mg PO DAILY olopatadine [Patanol] 0.1 % drops 1 drp EYE-BOTH DIRECTED PRN (Reason: Allergies) cholecalciferol (vitamin D3) [Vitamin D3] 125 mcg (5,000 unit) Tablet 5,000 unit PO BID levothyroxine [Synthroid] 175 mcg Tablet 175 mcg PO DAILY fexofenadine 180 mg Tablet 180 mg PO BID PRN (Reason: Allergies) carvedilol 25 mg Tablet 25 mg PO BID tamsulosin 0.4 mg Capsule 0.4 mg PO BEDTIME acetaminophen 325 mg Tablet 650 mg PO TID Qty: 60 0RF polyethylene glycol 3350 17 gram Powder In Packet 17 gm PO DAILY PRN (Reason: Constipation) Qty: 20 0RF hydroxyzine pamoate 25 mg Capsule 25 mg PO Q4HR PRN (Reason: itching/nausea) Qty: 30 0RF (DME) walker Misc See Rx Instructions .ROUTE .MEDSUPPLY Qty: 1 0RF Patient Comments: No longer using his walker. Rx Instructions: as directed bupropion HCl 300 mg Tablet Extended Release 24 Hr 300 mg PO QAM lamotrigine 100 mg Tablet 100 mg PO BID prazosin 1 mg Capsule 1 mg PO BEDTIME meloxicam 15 mg Tablet 15 mg PO BEDTIME Follow up/Referrals: Morales Garza MD [Primary Care Provider] - Diet/Activity/Treatments Diet: Diet as Tolerated Activity: As tolerated Visit Report/Discharge Packet Stand Alone Forms: Patient Portal/API, Stroke Signs & Symptoms Discharge Data Primary Care Provider: Morales Garza Attending Provider: Santiago Middleton Admit Date/Time: 03/22/23 22:54 Discharges patient from system. Discharge Date/Time: 03/23/23 16:50 Quality VTE Deep Vein Thrombosis/Pulmonary Embolism Present on Admission: No
--- NOTE | 2023-03-23 17:50 | PC.NURSE ---
Pt is A&OX4, VSS, afebrile. He denies SOB or Chest pain this a.m. and completes treadmill stress test today. He is given prn tylenol for a headache which resolves, with good effect. He reports he feels tightness/limited with deep inhalations like not being able to take a full deep breath in. No hypoxemia or SOB with ambulating. He is able to ambulate around his room and on unit independently without any limitations. Echo completed this a.m. After stress test results reviewed with patient, clears patient for discharge home this evening. He is escorted by RN to [facility] where he is discharged to drive himself home in his personal vehicle at approximately 1650 this evening.
== END 2023-03-23 16:50 | disposition home or self-care (01) ==
LOC: ED 19:38 → AC 22:54
PROVIDERS: Emergency Medicine; Admitting Provider Internal Medicine; Emergency Provider Emergency Medicine; PCP Family Medicine; Visit Provider Internal Medicine
DX: R07.9 Chest pain, unspecified (principal); R06.02 Shortness of breath; I10 Essential (primary) hypertension; E03.9 Hypothyroidism, unspecified; K21.9 Gastro-esophageal reflux disease without esophagitis; N40.0 Benign prostatic hyperplasia without lower urinary tract symptoms; Z20.822 Contact with and (suspected) exposure to COVID-19; Z86.711 Personal history of pulmonary embolism; Z79.01 Long term (current) use of anticoagulants; Z87.891 Personal history of nicotine dependence
CPT/HCPCS: 36415; 71045; 71275; 80048; 80053; 81003; 83605; 83880; 84484; 85025; 85379; 85610; 87635; 93005; 93017; 93306; 99284; C9803; G0378; Q9967

== ENCOUNTER → 2023-05-04 12:00 | Outpatient (CLI) | payer OTHER, SELFPAY ==
[2023-03-22 23:20] VITALS: BMI 29.7
--- NOTE | 2023-05-09 08:46 | PM.PFT.1 ---
Pulmonary Function Test Referral & Results Date Patient Seen: 05/04/23 Results: The spirometry demonstrates an FVC of 5.88 L which is 101% of predicted. The FEV1 was measured at 3.80 L which is 86% of predicted. The FEV1/FVC ratio was 65 which is 86% of predicted. Following the administration of bronchodilator there was a 41% improvement in FEF 25-75%. Lung volumes show an SVC of 6.04 L which is 107% of predicted. The diffusing capacity was measured at 33.58 which is 83% of predicted. The maximum voluntary ventilation was normal Interpretation: This study demonstrates possibly very mild obstructive lung disease based on minimal reduction FEV1. Shape a flow volume loop also supports the presence of some degree of obstructive lung disease. There is evidence of improvement in small airway flow after bronchodilator administration as above. Lung volumes and diffusing capacity are probably normal Overall the degree of lung disease seen on this study is really quite minimal and clinical correlation is suggested
== END ==
PROVIDERS: PCP Registered Nurse; Referring Provider Registered Nurse; Visit Provider Registered Nurse
DX: R06.00 Dyspnea, unspecified (principal); Z87.891 Personal history of nicotine dependence; J98.8 Other specified respiratory disorders
CPT/HCPCS: 94060; 94726; 94729

== ENCOUNTER 2023-07-12 06:47 | Day surgery (SDC) | payer OTHER, SELFPAY ==
[2023-03-22 23:20] VITALS: BMI 29.7
--- NOTE | 2023-07-12 | PATH_ITS ---
[facility] Accession Number: [id number] No. of containers..01 Tissue . 01 Material submitted: . colon - ASCENDING COLON . 01 Diagnosis: Ascending Colon Polyp, Biopsy: Sessile serrated adenoma. MRV 07/18/2023 1618 Local . 01 Electronically signed: . Owen Hinton MD, PhD, Pathologist NPI- [id number] . 01 Gross description: . ASCENDING COLON: Received in formalin is 1 fragment(s) of garcia, soft tissue measuring 1.8 x 0.8 x 0.2 cm submitted entirely in 1 cassette(s) /PADMINI 07/13/2023 0046 Local . 01 Pathologist provided ICD-10: D12.2 . 01 CPT . 943124 Specimen Comment: A courtesy copy of this report has been sent to [phone] Performed at: 01 [facility] [address] [place] [address], [place], [place] [id number] MD Tomas Armenta MD Phone: [phone]
[2023-07-12 07:21] VITALS: BMI 30.3
[2023-07-12 07:29] VITALS: BP 127/79; PULSE 61; RESP 17; TEMP 36.3; O2SAT 96; BMI 30.3
--- NOTE | 2023-07-12 08:01 | P.HP_ITS ---
History of Present Illness History of Present Illness Date Patient Seen: 07/12/23 Time Patient Seen: 08:01 Chief complaint: EGD & Colonoscopy w/poss bx's Narrative: Nadeem is a 63-year-old man with history of polyps on prior colonoscopies who is due and hiatal hernia repair. He believes his hiatal hernia repair has failed because his symptoms have recurred. See the office note from June for details. [facility] Medical History (Updated 06/06/23 @ 14:52 by Erick Cardoza MD) Atrial septal defect Deviated nasal septum Former smoker GERD (gastroesophageal reflux disease) Hyperlipidemia Hypertension Hypothyroidism Insomnia Low back pain WARD (obstructive sleep apnea) PFO (patent foramen ovale) Primary osteoarthritis of right knee Pulmonary emboli (~08/05/19) Sleep apnea Stroke (~08/05/18) Unilateral post-traumatic osteoarthritis, right knee Surgical History History of Jeniffer fundoplication Social History household members: spouse and children Smoking Status: Former smoker alcohol intake: former Meds Home Medications and Allergies Home Medications Medication Instructions Recorded Confirmed Type apixaban 5 mg tablet (Eliquis) 5 mg PO BID 12/19/19 07/12/23 History atorvastatin 40 mg tablet 40 mg PO DAILY 12/19/19 07/12/23 History losartan 50 mg tablet 50 mg PO DAILY 12/19/19 07/12/23 History carvedilol 25 mg tablet 25 mg PO BID 11/30/20 07/12/23 History levothyroxine 175 mcg tablet 175 mcg PO DAILY 11/30/20 07/12/23 History (Synthroid) tamsulosin 0.4 mg capsule 0.4 mg PO BEDTIME 11/30/20 07/12/23 History bupropion HCl 300 mg 24 hr tablet, 300 mg PO QAM 03/23/23 07/12/23 History extended release lamotrigine 100 mg tablet 100 mg PO BID 03/23/23 07/12/23 History meloxicam 15 mg tablet 15 mg PO BEDTIME 03/23/23 07/12/23 History prazosin 1 mg capsule 1 mg PO BEDTIME 03/23/23 07/12/23 History hydroxyzine HCl 50 mg tablet 50 mg PO TID 06/06/23 07/12/23 History loratadine 10 mg tablet (Allergy 10 mg PO DAILY 06/06/23 07/12/23 History Relief (loratadine)) omeprazole 40 mg capsule,delayed 40 mg PO DAILY 06/06/23 07/12/23 History release sodium,potassium,mag sulfates 17.5 See Rx Instructions PO .COMPLEX 06/06/23 07/12/23 Rx gram-3.13 gram-1.6 gram oral soln #354 mL (Suprep Bowel Prep Kit) Allergies Allergy/AdvReac Type Severity Reaction Status Date / Time tetanus toxoid, adsorbed Allergy Mild Arm Verified 07/12/23 07:15 swelling, bruise, scabbed Exam Vital Signs (past 8 hours): - 07/12/23 07:29 Temperature 97.4 F L Pulse Rate 61 Respiratory Rate 17 Blood Pressure 127/79 Pulse Oximetry 96 Oxygen Delivery Method Room Air Oxygen Delivery Method Room Air Const General: healthy appearing Assessment & Plan Assessment and plan (1) Hiatal hernia: Status: Acute (2) History of colon polyps: Status: Acute Plan We reviewed the risks and benefits of EGD and colonoscopy and he would like to proceed.
[2023-07-12 08:46] VITALS: BP 120/91; PULSE 69; RESP 18; TEMP 36.4; O2SAT 93
--- NOTE | 2023-07-12 08:51 | PM.OP.EC ---
Operative Date/Time/Diagnoses Date of procedure: 07/12/23 Time of procedure: 08:51 Pre-op diagnosis: Personal history of polyps and GERD Post-op diagnosis: same Procedure & Clinicians Study performed: EGD and colonoscopy Same procedure as scheduled: Yes Surgeon: Erick Cardoza Procedure Notes Procedure in detail: Surgeon: Erick Cardoza MD Anesthesia: Mirna Chairez CRNA Procedure in detail: A timeout was performed. A bite blocked was placed and monitors were attached to the patient. The patient was positioned the supine position. Sedation was administered. Once the patient was sedated the endoscope was inserted through the bite block and passed through the esophagus and stomach and into the duodenum. No abnormalities were seen. We then withdrew the scope into the stomach. Antrum appeared normal. The endoscope was retroflexed and a large hiatal hernia was seen. No other abnormalities were seen. The endoscope was straightned and withdrawn into the esophagus. No abnormalities were seen. Findings: Hiatal hernia Next we repositioned the patient for a colonoscopy. A digital rectal exam was performed and was normal. The colonoscope was inserted and advanced to the cecum. The appendiceal orifice was identified and photographed. The scope was slowly withdrawn over greater than 6 minutes. There was a 7 cm polyp in the ascending colon removed with a cold snare. The scope was retroflexed in the rectum and no other abnormalities were seen. Findings: 7 cm polyp in the ascending colon EBL: 5 mL Scope withdrawal time: 8 minutes Sedation minutes: 29 minutes Post-procedure Disposition: PACU
[2023-07-12 08:54] VITALS: BP 128/89; PULSE 62; RESP 14; O2SAT 92
[2023-07-12 08:59] VITALS: BP 134/95; PULSE 57; RESP 18; TEMP 36.5; O2SAT 95
[2023-07-12] MEDS: LACTATED RINGERS 1,000 ML 42 ML IV (09:03)
[2023-07-12 09:04] VITALS: BP 139/92; PULSE 54; RESP 14; TEMP 36.2; O2SAT 97
== END 2023-07-12 09:26 | disposition home or self-care (01) ==
PROVIDERS: PCP Registered Nurse; Referring Provider Surgery; Visit Provider Surgery
PROC: 0DJ08ZZ Inspection of Upper Intestinal Tract, Via Natural or Artificial Opening Endoscopic (ICD-10-PCS; CPT 43235; principal; 2023-07-12 08:15)
PROC: 0DJD8ZZ Inspection of Lower Intestinal Tract, Via Natural or Artificial Opening Endoscopic (ICD-10-PCS; CPT 45378; 2023-07-12 08:15)
DX: Z12.11 Encounter for screening for malignant neoplasm of colon (principal); Z86.010 Personal history of colon polyps; K44.9 Diaphragmatic hernia without obstruction or gangrene; K21.9 Gastro-esophageal reflux disease without esophagitis; D12.2 Benign neoplasm of ascending colon
CPT/HCPCS: 45385; 43235; J2704

== ENCOUNTER 2023-07-13 15:31 | Emergency (ER) | payer OTHER, SELFPAY ==
[2023-03-22 23:20] VITALS: BMI 29.7
[2023-07-13] VITALS (7 sets, daily range): BP systolic 129–148; BP diastolic 78–89; PULSE 50–60; RESP 15–26; TEMP 36.9; O2SAT 95–98; BMI 18.1
[2023-07-13] MEDS: PANTOPRAZOLE 40 MG VIAL 80 MG IV (15:52)
[2023-07-13] MEDS: ONDANSETRON 4 MG/2 ML INJ IV (15:52)
[2023-07-13 15:57] LABS: Add Manual Diff / Slide Review NO; Basophils Absolute Auto 0 /uL (0-100); Basophils Percent Auto 0.5 % (0-2); Eosinophils Absolute Auto 100 /uL (0-450); Hematocrit 41.4 % (41-53); Lymphocytes Absolute Auto 1300 /uL (1100-4500); Lymphocytes Percent Auto 23.2 % (25-40); Mean Corpuscular HGB Conc 33.8 % (30-36); Mean Corpuscular Hemoglobin 30.9 PG (26-34); Mean Corpuscular Volume 91.3 fL (80-100); Monocytes Absolute Auto 500 /uL (0-900); Monocytes Percent Auto 8.2 % (3-14); Neutrophils Absolute Auto 3700 /uL (1500-7000); Neutrophils Percent Auto 67.1 % (50-75); Platelet Count 205 X10^3/uL (150-400); Red Blood Cell Count 4.53 X10^6/uL (4.5-5.9); Red Cell Distribution Width 13.4 % (11.6-14.8); White Blood Cell Count 5.6 X10^3/uL (4.5-11.0)
[2023-07-13 16:02] LABS: INR 1.2 (0.9-1.3); Prothrombin Time 13.2 SECONDS (10.1-12.7)
[2023-07-13 16:05] LABS: PTT Partial Thromboplastin Tim 35 SECONDS (26-36)
[2023-07-13 16:06] LABS: Alanine Aminotransferase 28 IU/L (<50); Albumin Globulin Ratio 1.7 (1.0-2.8); Alkaline Phosphatase 47 U/L (38-126); Aspartate Aminotransferase 33 IU/L (17-59); BUN Creatinine Ratio 18.3 (6-22); Bilirubin Total 0.7 mg/dL (0.2-1.3); Blood Urea Nitrogen 24 mg/dL (9-20); Calcium 8.8 mg/dL (8.4-10.2); Carbon Dioxide 31 mmol/L (22-32); Chloride 104 mmol/L (98-107); Estimated Glomerular Filt Rate > 60 mL/min (>60); Globulin 2.4 g/dL (1.7-4.1); Glucose 99 mg/dL (80-110); HEMOLYSIS 31 (0-50); Potassium 4.8 mmol/L (3.4-5.1); Sodium 138 mmol/L (137-145); Total Protein 6.4 g/dL (6.3-8.2)
--- NOTE | 2023-07-13 17:08 | PC.NURSE ---
Patient presents having coffee ground emesis since his colonoscopy/endoscopy procedure yesterday. He denies shortness of breath, dizziness, lightheaded. Pt complains of nausea/vomiting and throat burning due to GERD and history of surgical hiatal hernia repair that failed.
[2023-07-13 18:16] LABS: Hematocrit 40.7 % (41-53)
--- NOTE | 2023-07-13 18:59 | ED_ITS ---
HPI - GI Bleed General Chief complaint: GI Bleed Stated complaint: Thinks internal bleeding Time Seen by Provider: 07/13/23 18:03 Source: patient Mode of arrival: Ambulatory Limitations: no limitations History of Present Illness HPI Narrative: Patient is a 63-year-old male. Yesterday underwent a colonoscopy with a polyp removal and also an upper endoscopy. He states that last evening he had an episode of vomiting that he states did look to be coffee-ground. He was able to go back to sleep afterwards. He had another episode of vomiting this morning. Has not had anything since then. Has not had a bowel movement since before his colonoscopy. He is not having any abdominal tenderness. No fevers. No chest pain or shortness of breath. Related Data Home Medications Medication Instructions Recorded Confirmed apixaban 5 mg tablet (Eliquis) 5 mg PO BID 12/19/19 07/12/23 atorvastatin 40 mg tablet 40 mg PO DAILY 12/19/19 07/12/23 losartan 50 mg tablet 50 mg PO DAILY 12/19/19 07/12/23 carvedilol 25 mg tablet 25 mg PO BID 11/30/20 07/12/23 levothyroxine 175 mcg tablet 175 mcg PO DAILY 11/30/20 07/12/23 (Synthroid) tamsulosin 0.4 mg capsule 0.4 mg PO BEDTIME 11/30/20 07/12/23 bupropion HCl 300 mg 24 hr tablet, 300 mg PO QAM 03/23/23 07/12/23 extended release lamotrigine 100 mg tablet 100 mg PO BID 03/23/23 07/12/23 meloxicam 15 mg tablet 15 mg PO BEDTIME 03/23/23 07/12/23 prazosin 1 mg capsule 1 mg PO BEDTIME 03/23/23 07/12/23 hydroxyzine HCl 50 mg tablet 50 mg PO TID 06/06/23 07/12/23 loratadine 10 mg tablet (Allergy 10 mg PO DAILY 06/06/23 07/12/23 Relief (loratadine)) omeprazole 40 mg capsule,delayed 40 mg PO DAILY 06/06/23 07/12/23 release Previous Rx's Medication Instructions Recorded sodium,potassium,mag sulfates 17.5 See Rx Instructions PO .COMPLEX 06/06/23 gram-3.13 gram-1.6 gram oral soln #354 mL (Suprep Bowel Prep Kit) Allergies Allergy/AdvReac Type Severity Reaction Status Date / Time tetanus toxoid, adsorbed Allergy Mild Arm Verified 07/13/23 15:35 swelling, bruise, scabbed Review of Systems Constitutional Constitutional: Reports system reviewed and no additional complaints, except as documented Cardiovascular Cardiovascular: Reports system reviewed and no additional complaints, except as documented Respiratory Respiratory: Reports system reviewed and no additional complaints, except as d ocumented Gastrointestinal Gastrointestinal: Reports system reviewed and no additional complaints, except as documented Integumentary/Breasts Skin/Breast: Reports system reviewed and no additional complaints, except as documented Patient History Medical History Atrial septal defect Deviated nasal septum Former smoker GERD (gastroesophageal reflux disease) Hyperlipidemia Hypertension Hypothyroidism Insomnia Low back pain WARD (obstructive sleep apnea) PFO (patent foramen ovale) Primary osteoarthritis of right knee Pulmonary emboli (~08/05/19) Sleep apnea Stroke (~08/05/18) Unilateral post-traumatic osteoarthritis, right knee Surgical History History of Jeniffer fundoplication Social History household members: spouse and children Smoking Status: Former smoker alcohol intake: former Smoking Status: Former smoker tobacco type: cigarettes alcohol intake frequency: other Substance Use Type: does not use Exam Initial Vital Signs Initial Vital Signs: Vital Signs Temperature 98.4 F 07/13/23 15:35 Pulse Rate 58 L 07/13/23 15:35 Respiratory Rate 17 07/13/23 15:35 Blood Pressure 148/89 H 07/13/23 15:35 Pulse Oximetry 96 07/13/23 15:35 Oxygen Delivery Method Room Air 07/13/23 15:35 HENMT Head: normal to inspection and normocephalic Resp Effort & Inspection: normal respiratory effort Cardio Rate: regular rate GI Inspection: normal to inspection and non-distended Skin General: no rashes or lesions noted Course Orders Ordered: ED Orders 07/13/23 15:46 Complete Blood Count AUTO DIFF Stat Comprehensive Metabolic Panel Stat PTT Partial Thromboplastin Parvez Stat Prothrombin Time INR Stat Type and Screen Stat 07/13/23 17:33 EKG-12 Lead Stat 07/13/23 18:05 Hemoglobin and Hematocrit Stat Discontinued Medications Ondansetron HCl (Ondansetron 4 Mg/2 Ml Inj) 4 mg IV NOW PRN PRN Reason: Nausea And Vomiting Last Admin: 07/13/23 15:52 Dose: 4 mg Documented By: RENÉ Ondansetron HCl (Ondansetron 4 Mg Odt) 4 mg SL NOW PRN PRN Reason: Nausea And Vomiting Pantoprazole Sodium (Pantoprazole 40 Mg Vial) 80 mg IV NOW ONE Stop: 07/13/23 15:42 Last Admin: 07/13/23 15:52 Dose: 80 mg Documented By: RENÉ Vital Signs Vital signs: Vital Signs - 8 hr 07/13/23 15:35 07/13/23 16:58 07/13/23 17:00 Temperature 98.4 F Pulse Rate 58 L 50 L Respiratory Rate 17 15 Blood Pressure 148/89 H 132/78 Pulse Oximetry 96 97 Oxygen Delivery Method Room Air 07/13/23 17:00 07/13/23 18:10 07/13/23 18:30 Temperature Pulse Rate 54 L 59 L 59 L Respiratory Rate 26 H 23 21 Blood Pressure Pulse Oximetry 98 96 Oxygen Delivery Method Room Air 07/13/23 18:31 07/13/23 18:31 07/13/23 19:00 Temperature Pulse Rate 60 Respiratory Rate 20 Blood Pressure 133/81 129/87 Pulse Oximetry 96 Oxygen Delivery Method Room Air 07/13/23 19:00 Temperature Pulse Rate 55 L Respiratory Rate 17 Blood Pressure Pulse Oximetry 95 Oxygen Delivery Method Room Air MDM - GI Bleed Medical Records Attestation: I reviewed the patient's medical records. Lab Data Attestation: I reviewed the patient's lab results. 07/13/23 18:05 07/13/23 15:46 Labs: Lab Results 07/13/23 07/13/23 07/13/23 Range/Units 15:46 15:46 15:46 WBC 5.6 (4.5-11.0) X10^3/uL RBC 4.53 (4.5-5.9) X10^6/uL Hgb 14.0 (13.5-17.5) g/dL Hct 41.4 (41-53) % MCV 91.3 (80-100) fL MCH 30.9 (26-34) PG MCHC 33.8 (30-36) % RDW 13.4 (11.6-14.8) % Plt Count 205 (150-400) X10^3/uL Neut % (Auto) 67.1 (50-75) % Lymph % (Auto) 23.2 L (25-40) % [place] % (Auto) 8.2 (3-14) % Eos % (Auto) 1.0 L (2-4) % Baso % (Auto) 0.5 (0-2) % Neut # (Auto) 3700 (8788-6401) /uL Lymph # (Auto) 1300 (3799-1125) /uL [place] # (Auto) 500 (0-900) /uL Eos # (Auto) 100 (0-450) /uL Baso # (Auto) 0 (0-100) /uL PT 13.2 H (10.1-12.7) SECONDS INR 1.2 (0.9-1.3) APTT 35 (26-36) SECONDS Sodium 138 (137-145) mmol/L Potassium 4.8 (3.4-5.1) mmol/L Chloride 104 (98-107) mmol/L Carbon Dioxide 31 (22-32) mmol/L BUN 24 H (9-20) mg/dL Creatinine 1.31 H (0.66-1.25) mg/dL Estimated GFR > 60 (>60) mL/min BUN/Creatinine Ratio 18.3 (6-22) Glucose 99 (80-110) mg/dL Calcium 8.8 (8.4-10.2) mg/dL Total Bilirubin 0.7 (0.2-1.3) mg/dL AST 33 (17-59) IU/L ALT 28 (<50) IU/L Alkaline Phosphatase 47 (38-126) U/L Total Protein 6.4 (6.3-8.2) g/dL Albumin 4.0 (3.5-5.0) g/dL Globulin 2.4 (1.7-4.1) g/dL Albumin/Globulin Ratio 1.7 (1.0-2.8) Blood Type Antibody Screen 07/13/23 07/13/23 Range/Units 15:46 18:05 WBC (4.5-11.0) X10^3/uL RBC (4.5-5.9) X10^6/uL Hgb 14.0 (13.5-17.5) g/dL Hct 40.7 L (41-53) % MCV (80-100) fL MCH (26-34) PG MCHC (30-36) % RDW (11.6-14.8) % Plt Count (150-400) X10^3/uL Neut % (Auto) (50-75) % Lymph % (Auto) (25-40) % [place] % (Auto) (3-14) % Eos % (Auto) (2-4) % Baso % (Auto) (0-2) % Neut # (Auto) (6504-3623) /uL Lymph # (Auto) (1607-8932) /uL [place] # (Auto) (0-900) /uL Eos # (Auto) (0-450) /uL Baso # (Auto) (0-100) /uL PT (10.1-12.7) SECONDS INR (0.9-1.3) APTT (26-36) SECONDS Sodium (137-145) mmol/L Potassium (3.4-5.1) mmol/L Chloride (98-107) mmol/L Carbon Dioxide (22-32) mmol/L BUN (9-20) mg/dL Creatinine (0.66-1.25) mg/dL Estimated GFR (>60) mL/min BUN/Creatinine Ratio (6-22) Glucose (80-110) mg/dL Calcium (8.4-10.2) mg/dL Total Bilirubin (0.2-1.3) mg/dL AST (17-59) IU/L ALT (<50) IU/L Alkaline Phosphatase (38-126) U/L Total Protein (6.3-8.2) g/dL Albumin (3.5-5.0) g/dL Globulin (1.7-4.1) g/dL Albumin/Globulin Ratio (1.0-2.8) Blood Type O Positive Antibody Screen Negative Urine Dip Bedside Urine Glucose Negative Bedside Urine Bilirubin - Negative Bedside Urine Ketone - Negative Urine Specific [place] 1.010 Bedside Urine Occult Blood - Negative Bedside Urine pH 7.0 Bedside Urine Protein - Negative Bedside Urine Urobilinogen - Negative Bedside Urine Nitrite - Negative Bedside Urine Leukocytes - Negative Esterase ECG Data Attestation: I personally reviewed and interpreted this ECG as follows: Interpretation: Sinus bradycardia Ventricular rate of 56 Normal axis Normal QRS Normal QTC No ST T wave changes MDM Narrative Medical decision making narrative: H&H is not changed after several hours. Vital signs are unremarkable. He is not had any vomiting since this morning. Review of his medical record shows that the biopsy was done in the colonoscopy not in the upper endoscopy. Will hold on further workup for now. Will have him contact his primary doctor for follow-up. He was given return precautions. He expressed understanding and agreement. Discharge Plan Departure Patient Disposition: Home Clinical Impression: Hematochezia Instructions: Gastrointestinal Bleeding Activity Restrictions/Additional Instructions: I do recommend that you continue to follow all of the postprocedure instructions given to you by general surgery. Continue all of your medications as directed. Contact your primary doctor for follow-up. Return to the emergency department for new or worsening symptoms. Prescriptions: No Action sodium,potassium,mag sulfates [Suprep Bowel Prep Kit] 17.5-3.13-1.6 gram recon soln See Rx Instructions PO .COMPLEX Qty: 354 0RF Rx Instructions: take as directed by Physician omeprazole 40 mg capsule,delayed release(DR/EC) 40 mg PO DAILY loratadine [Allergy Relief (loratadine)] 10 mg tablet 10 mg PO DAILY hydroxyzine HCl 50 mg tablet 50 mg PO TID atorvastatin 40 mg tablet 40 mg PO DAILY Eliquis 5 mg tablet 5 mg PO BID losartan 50 mg tablet 50 mg PO DAILY levothyroxine [Synthroid] 175 mcg Tablet 175 mcg PO DAILY carvedilol 25 mg Tablet 25 mg PO BID tamsulosin 0.4 mg Capsule 0.4 mg PO BEDTIME bupropion HCl 300 mg Tablet Extended Release 24 Hr 300 mg PO QAM lamotrigine 100 mg Tablet 100 mg PO BID prazosin 1 mg Capsule 1 mg PO BEDTIME meloxicam 15 mg Tablet 15 mg PO BEDTIME Referrals: Frieda Smith ARNP [Primary Care Provider] - Stand Alone Forms: Patient Portal/API
== END 2023-07-13 19:30 | disposition home or self-care (01) ==
PROVIDERS: Emergency Medicine; Emergency Provider Emergency Medicine; PCP Registered Nurse
DX: K92.1 Melena (principal); R00.1 Bradycardia, unspecified; Z79.899 Other long term (current) drug therapy
CPT/HCPCS: 36415; 80053; 81003; 85014; 85018; 85025; 85610; 85730; 86850; 86900; 86901; 93005; 93010; 96374; 96375; 99284; C9113; J2405